=== PATIENT | female | born 1955 | race Caucasian/White ===

== ENCOUNTER 2022-07-24 11:50 | Outpatient (CLI) | payer MEDICARE, SELFPAY ==
[2022-07-24 20:36] LABS: Basophils Absolute Auto 0.1 K/mm3 (0.0-0.1); Basophils Percent Auto 0.6 % (0.2-1.2); Eosinophils Absolute Auto 0.2 K/mm3 (0-0.3); Eosinophils Percent Auto 2.3 % (0-4.4); Immature Granulocyte Absolute 0.02 K/mm3 (0.00-0.031); Immature Granulocyte Percent A 0.3 % (0-0.5); Lymphocytes Absolute Auto 2.92 K/mm3 (0.9-3.2); Lymphocytes Percent Auto 36.8 % (18.3-44.2); Mean Corpuscular HGB Conc 31.2 g/dl (32-36); Mean Corpuscular Hemoglobin 28.9 pg (26-34); Mean Corpuscular Volume 92.9 fl (80-100); Mean Platelet Volume 9.5 fl (7.4-10.4); Monocytes Absolute Auto 0.5 K/mm3 (0.1-0.6); Monocytes Percent Auto 5.9 % (2.6-8.5); Neutrophils Absolute Auto 4.3 K/mm3 (1.3-6.7); Neutrophils Percent Auto 54.1 % (45.5-73.1); Platelet Count Result 222 k/mm3 (150-375); Red Blood Count 4.63 M/mm3 (4.2-5.4); Red Cell Distribution Width 14.5 % (11.5-14.5); White Blood Count 7.9 K/mm3 (4.5-10.0)
[2022-07-24 21:04] LABS: Hemoglobin 13.4 g/dL (12.0-15.0)
[2022-07-24 21:17] LABS: Alanine Aminotransferase 25 U/L (6-35); Albumin Level 4.5 g/dL (3.5-5.1); Alkaline Phosphatase 102 U/L (38-126); Anion Gap 8 mmol/L (8-16); Aspartate Amino Transferase 51 U/L (14-36); Bilirubin,Total 0.7 mg/dL (0.2-1.3); Blood Urea Nitrogen 23 mg/dL (7-17); Calcium 9.1 mg/dL (8.4-10.2); Carbon Dioxide 26 mmol/L (22-30); Chloride 105 mmol/L (98-107); Cholesterol 175 mg/dL (0-200); Estimated Glomerular Filt Rate 55; Glucose 93 mg/dL (65-110); HDL Direct 34 mg/dL; Potassium 4.6 mmol/L (3.4-5.0); Sodium 139 mmol/L (137-145); Triglycerides 151 mg/dL (<150)
[2022-07-24 21:21] LABS: Vitamin D 25 Hydroxy 29.5 ng/mL
[2022-07-24 21:28] LABS: LDL Cholesterol Direct 111 mg/dL
== END 2022-07-24 11:51 | disposition home or self-care (01) ==
LOC: ANHGOSHLAB 11:51
PROVIDERS: PCP Family Medicine; Visit Provider Family Medicine
DX: E78.5 Hyperlipidemia, unspecified (principal); E55.9 Vitamin D deficiency, unspecified; E53.8 Deficiency of other specified B group vitamins; I10 Essential (primary) hypertension
CPT/HCPCS: 36415; 80053; 80061; 82306; 82607; 84443; 85025

== ENCOUNTER 2022-11-11 10:23 | Emergency (ER) | payer MEDICARE, SELFPAY ==
--- NOTE | ~2022-11-11 | CT_ITS ---
EXAMINATION: CT BRAIN W/O DATE: 11/11/2022 11:35 INDICATION: Extreme dizziness. TECHNIQUE: Computed tomography (CT) of the head was performed without intravenous contrast. The dose- length product was 529.67 mGy-cm. Automated exposure control and iterative reconstruction technique w ere employed. COMPARISON: No prior studies for comparison. FINDINGS: Normal brain parenchymal volume for age. Normal vo-white differentiation. No acute intrac ranial hemorrhage, infarction, mass or mass effect. No ventriculomegaly or midline shift. Midline sagittal images demonstrate a normal corpus callosum, c raniovertebral junction and sella turcica. Basilar cisterns are patent. Paranasal sinuses and mastoids are pneumatized. No depressed skull fractures. IMPRESSION: 1. No acute intracranial abnormality. Reviewed, dictated and finalized at location A. [employer]
[2022-11-11 10:30] VITALS: BP 133/79; PULSE 65; RESP 16; TEMP 36.3; O2SAT 98
--- NOTE | 2022-11-11 10:38 | ED_ITS ---
HPI - Nausea/Vomiting/Diarrhea General Chief complaint: Nausea/Vomiting/Diarrhea Stated complaint: ambulance Time Seen by Provider: 11/11/22 10:38 Source: patient, EMS and RN notes reviewed Mode of arrival: ambulatory Limitations: no limitations Related Data Home Medications Medication Instructions Recorded Confirmed vit C 250 mg-vit E 200 unit-zinc 1 tablet PO BID 07/24/22 11/11/22 12.5 mg-copper 1 [id number] tablet (ICaps AREDS2 (copper citrate)) Allergies Allergy/AdvReac Type Severity Reaction Status Date / Time No Known Drug Allergies Allergy Unknown Unknown Verified 07/24/22 10:03 [facility] Past Medical History Medical History (Updated 11/11/22 @ 10:41 by Louis Sorensen MD) Abnormal mammogram of left breast Body mass index [BMI] 40.0-44.9, adult (12/30/18) CKD (chronic kidney disease) stage 3, GFR 30-59 ml/min Essential (primary) hypertension Hx of colonic polyps Vitamin D deficiency Surgical History Surgical History History of cholecystectomy (~2005) Hx of section (~1979) x2 1979,1982 Hx of tonsillectomy (~1958) Family History Family History Other Diabetes mellitus Hypertension Social History Social History Smoking status: Never smoker Second hand tobacco smoke exposure: No Alcohol intake: current Alcohol use details: consumes 2 glasses of wine weekly Substance use: never Substance use type: does not use Gender identity (if verbalized by the patient): Female Course Vital Signs Vital signs: Vital Signs Temperature 36.3 C L 11/11/22 10:30 Pulse Rate 65 11/11/22 10:30 Respiratory Rate 16 11/11/22 10:30 Blood Pressure 133/79 11/11/22 10:30 Pulse Oximetry 98 11/11/22 10:30 Oxygen Delivery Room Air 11/11/22 10:30 Temperature 36.3 C L 11/11/22 10:30 Pulse Rate 65 11/11/22 10:30 Respiratory Rate 16 11/11/22 10:30 Blood Pressure 133/79 11/11/22 10:30 Pulse Oximetry 98 11/11/22 10:30 Oxygen Delivery Room Air 11/11/22 10:30 Discharge Plan Discharge Prescriptions: No Action ICaps AREDS2 (copper citrate) 250 mg-200 unit -12.5 mg-1 mg tablet 1 tablet PO BID omeprazole 40 mg capsule,delayed release(DR/EC) 40 mg PO DAILY Qty: 90 0RF cholecalciferol (vitamin D3) 50 mcg (2,000 unit) tablet 50 mcg PO DAILY Qty: 90 1RF cyanocobalamin (vitamin B-12) 1,000 mcg tablet, sublingual 1,000 mcg sublingual DAILY Qty: 90 2RF verapamil 360 mg capsule,ext rel. pellets 24 hr 360 mg PO DAILY Qty: 90 1RF Paxlovid (EUA) 150-100 mg tablets,dose pack See Rx Instructions PO BID Qty: 20 0RF Rx Instructions: 2 tabs orally twice a day Follow-up/Referrals: UNKNOWN,DOCTOR [Primary Care Provider] -
--- NOTE | 2022-11-11 10:53 | ED.DIZZY ---
HPI - Dizziness General Chief Complaint: Nausea/Vomiting/Diarrhea Stated Complaint: ambulance Time Seen by Provider: 11/11/22 10:38 Source: patient, EMS and RN notes reviewed Mode of arrival: EMS Limitations: no limitations History of Present Illness HPI Narrative: patient states that she was sitting at home watching television when she had sudden onset dizziness and unsteadiness. She had just sat up so she sat back down and closed her eyes and waited for it to resolve. A few minutes later she got up and went to her room and had another onset the dizziness just feeling unsteady this made her nauseous and that is when she began to throw up. When she threw up she had some muscle spasms in her diaphragm she states and once the vomiting stopped the spasming stop. She was still having some residual unsteady off balance symptoms so she asked her to call EMS and she was brought in for further evaluation. In the ambulance she refused the Zofran because she was no longer nauseous. she states that the feeling of being unsteady has resolved. She still has some soreness in her abdomen. She denies any headache one-sided body weakness or change in vision. MD elicited complaint: dizziness and difficulty walking Onset (ago): minute(s) Timing: sudden onset Severity: severe Description: off-balance Context: change in body position History of similar symptoms: No Exacerbating factors: change in body position Relieving factors: remaining still Associated symptoms: nausea and vomiting Associated neuro symptoms: other (none) Related Data Home Medications Medication Instructions Recorded Confirmed vit C 250 mg-vit E 200 unit-zinc 1 tablet PO BID 07/24/22 11/11/22 12.5 mg-copper 1 [id number]-sba-[id number] tablet (ICaps AREDS2 (copper citrate)) Allergies Allergy/AdvReac Type Severity Reaction Status Date / Time No Known Drug Allergies Allergy Unknown Unknown Verified 07/24/22 10:03 Review of Systems Review of Systems: All systems reviewed & are unremarkable except as noted in HPI and below [facility] Past Medical History Medical History (Updated 11/11/22 @ 11:58 by Louis Sorensen MD) Abnormal mammogram of left breast Body mass index [BMI] 40.0-44.9, adult (12/30/18) CKD (chronic kidney disease) stage 3, GFR 30-59 ml/min Essential (primary) hypertension Hx of colonic polyps Vitamin D deficiency Surgical History Surgical History History of cholecystectomy (~2005) Hx of section (~1979) x2 1979,1982 Hx of tonsillectomy (~1958) Family History Family History Other Diabetes mellitus Hypertension Social History Social History Smoking status: Never smoker Second hand tobacco smoke exposure: No Alcohol intake: current Alcohol use details: consumes 2 glasses of wine weekly Substance use: never Substance use type: does not use Gender identity (if verbalized by the patient): Female Exam Const: General: healthy appearing, no acute distress and alert Nutritional Appearance: well nourished and obese morbidly obese Orientation/consciousness: patient oriented x3 Limitations: no limitations HENMT: Head: normal to inspection Face and sinus: normal facial exam Eyes: Conjunctivae: conjunctivae normal Pupils: Equal, round and reactive pupils present EOM: EOMs intact bilaterally and No Nystagmus present Neck: Neck: normal visual inspection and no meningeal signs Resp: Effort & Inspection: normal respiratory effort Auscultation: clear to auscultation bilaterally Cardio: Rate: regular rate Rhythm: regular rhythm GI: GI Palp: Yes Soft to palpation and No Tenderness to palpation present (GI) Auscultation: normal bowel sounds Back/Spine/Pelvis: Cervical Spine: cervical ROM normal Thoracic/Lumbar Spine: thoraco-lumbar ROM normal Skin: General
[2022-11-11 11:14] LABS: Basophils Absolute Auto 0.02 K/mm3 (0.00-0.10); Basophils Percent Auto 0.2 % (0.0-1.0); Eosinophils Absolute Auto 0.05 K/mm3 (0.02-0.50); Eosinophils Percent Auto 0.5 % (1.0-6.0); Hematocrit 38.9 % (35.0-42.0); Hemoglobin 12.4 g/dL (11.7-13.8); Immature Granulocyte Absolute 0.04 K/mm3 (0.00-0.00); Immature Granulocyte Percent A 0.4 % (0.0-0.0); Lymphocytes Absolute Auto 1.32 K/mm3 (1.10-4.50); Lymphocytes Percent Auto 13.6 % (18.0-42.0); Mean Corpuscular HGB Conc 31.9 g/dL (32.0-36.0); Mean Corpuscular Hemoglobin 28.6 pg (27.0-31.0); Mean Corpuscular Volume 89.6 fL (78.0-102.0); Mean Platelet Volume 9.1 fl (9.2-11.8); Monocytes Absolute Auto 0.34 K/mm3 (0.10-0.90); Monocytes Percent Auto 3.5 % (2.0-11.0); Neutrophils Absolute Auto 7.9 K/mm3 (1.7-7.2); Neutrophils Percent Auto 81.8 % (50.0-70.0); Platelet Count Result 177 K/mm3 (150-420); Red Blood Count 4.34 M/mm3 (4.20-5.40); Red Cell Distribution Width 13.9 % (11.6-14.4); White Blood Count 9.7 K/mm3 (4.8-10.8)
[2022-11-11 11:34] LABS: Alanine Aminotransferase 24 U/L (14-59); Albumin Level 3.5 g/dL (3.4-5.0); Alkaline Phosphatase 86 U/L (46-116); Anion Gap 4 mmol/L (8-16); Aspartate Amino Transferase 27 U/L (15-37); Bilirubin,Total 0.3 mg/dL (0.00-1.00); Blood Urea Nitrogen 22 mg/dL (7-18); CRP 0.7 mg/dL (0.0-0.9); Calcium 8.4 mg/dL (8.5-10.1); Carbon Dioxide 30 mmol/L (21-32); Chloride 106 mmol/L (98-108); Estimated Glomerular Filt Rate 49; Glucose 108 mg/dL (70-99); Osmolality Calculated 294 mOsm/kg (285-295); Potassium 3.8 mmol/L (3.5-5.1); Sodium 140 mmol/L (136-145); Total Protein 6.8 g/dL (6.4-8.2)
[2022-11-11 11:49] LABS: Add Urine Microscopic? YES; Appearance Urine Clear (Clear); Bilirubin Urine Negative (Negative); Blood Urine Trace-Intact (Negative); Color Urine Light Yellow (Yellow); Glucose Urine UA Negative (Negative); Ketones Urine Trace (Negative); Leukocyte Esterase Ur Negative LEU/UL (Negative); Nitrate Urine Negative (Negative); Protein Urine Negative (Negative); Specific Grav Ur 1.025 (1.010-1.020); Urobilinogen Urine 0.2 mg/dL (0.2-1.0)
--- NOTE | 2022-11-11 11:49 | PC.NURSE ---
patient states she has not taken her am dosage of blood pressure medication due to vomiting. erp is aware.
[2022-11-11 11:54] LABS: RBC Urine 0-2 /hpf (0-2); Squamous Epithelial Cell Urine Moderate /hpf (Few); WBC Urine 0-3 /hpf (0-3)
[2022-11-11 11:55] LABS: Bacteria Urine 2+ /hpf
[2022-11-11 12:00] VITALS: BP 160/69; PULSE 61; RESP 18; O2SAT 100
[2022-11-11 12:12] VITALS: BP 156/84; PULSE 67; RESP 18; TEMP 36.4; O2SAT 98
== END 2022-11-11 12:13 | disposition home or self-care (01) ==
PROVIDERS: Emergency Provider Emergency Medicine
DX: H81.10 Benign paroxysmal vertigo, unspecified ear (principal); I12.9 Hypertensive chronic kidney disease with stage 1 through stage 4 chronic kidney disease, or unspecified chronic kidney disease; N18.30 Chronic kidney disease, stage 3 unspecified; E55.9 Vitamin D deficiency, unspecified
CPT/HCPCS: 36415; 70450; 80053; 81001; 85025; 86140; 99284

== ENCOUNTER 2023-01-22 10:44 | Outpatient (CLI) | payer MEDICARE, SELFPAY ==
[2023-01-22 20:11] LABS: Basophils Absolute Auto 0.1 K/mm3 (0.0-0.1); Basophils Percent Auto 0.8 % (0.2-1.2); Eosinophils Absolute Auto 0.2 K/mm3 (0-0.3); Eosinophils Percent Auto 2.1 % (0-4.4); Hemoglobin 13.7 g/dL (12.0-15.0); Immature Granulocyte Absolute 0.02 K/mm3 (0.00-0.031); Immature Granulocyte Percent A 0.3 % (0-0.5); Lymphocytes Absolute Auto 2.58 K/mm3 (0.9-3.2); Lymphocytes Percent Auto 33.3 % (18.3-44.2); Mean Corpuscular HGB Conc 31.9 g/dl (32-36); Mean Corpuscular Hemoglobin 28.4 pg (26-34); Mean Corpuscular Volume 89.2 fl (80-100); Mean Platelet Volume 9.4 fl (7.4-10.4); Monocytes Absolute Auto 0.5 K/mm3 (0.1-0.6); Monocytes Percent Auto 5.9 % (2.6-8.5); Neutrophils Absolute Auto 4.5 K/mm3 (1.3-6.7); Neutrophils Percent Auto 57.6 % (45.5-73.1); Platelet Count Result 236 k/mm3 (150-375); Red Blood Count 4.82 M/mm3 (4.2-5.4); Red Cell Distribution Width 13.8 % (11.5-14.5); White Blood Count 7.7 K/mm3 (4.5-10.0)
[2023-01-22 20:22] LABS: Vitamin D 25 Hydroxy 36.6 ng/mL
[2023-01-22 20:36] LABS: Alanine Aminotransferase 20 U/L (6-35); Albumin Level 4.2 g/dL (3.5-5.1); Alkaline Phosphatase 99 U/L (38-126); Anion Gap 7 mmol/L (8-16); Aspartate Amino Transferase 25 U/L (14-36); Bilirubin,Total 0.6 mg/dL (0.2-1.3); Blood Urea Nitrogen 19 mg/dL (7-17); Calcium 8.8 mg/dL (8.4-10.2); Carbon Dioxide 26 mmol/L (22-30); Chloride 108 mmol/L (98-107); Estimated Glomerular Filt Rate 55; Glucose 89 mg/dL (65-110); Potassium 4.6 mmol/L (3.4-5.0); Sodium 141 mmol/L (137-145)
== END 2023-01-22 10:45 | disposition home or self-care (01) ==
LOC: ANHGOSHLAB 10:45
PROVIDERS: PCP Family Medicine; Visit Provider Nurse Practitioner
DX: E53.8 Deficiency of other specified B group vitamins (principal); E55.9 Vitamin D deficiency, unspecified; I10 Essential (primary) hypertension
CPT/HCPCS: 36415; 80053; 82306; 82607; 85025

== ENCOUNTER 2023-07-25 09:50 | Outpatient (CLI) | payer MEDICARE, SELFPAY ==
[2023-07-25 11:43] LABS: Alanine Aminotransferase 19 U/L (6-35); Albumin Level 4.1 g/dL (3.5-5.1); Alkaline Phosphatase 87 U/L (38-126); Anion Gap 8 mmol/L (8-16); Aspartate Amino Transferase 35 U/L (14-36); Bilirubin,Total 0.6 mg/dL (0.2-1.3); Blood Urea Nitrogen 21 mg/dL (7-17); Calcium 8.8 mg/dL (8.4-10.2); Carbon Dioxide 26 mmol/L (22-30); Chloride 107 mmol/L (98-107); Cholesterol 159 mg/dL (0-200); Estimated Glomerular Filt Rate 55; Glucose 97 mg/dL (65-110); HDL Direct 34 mg/dL; Potassium 4.6 mmol/L (3.4-5.0); Sodium 141 mmol/L (137-145); Triglycerides 94 mg/dL (<150)
[2023-07-25 11:45] LABS: Basophils Percent Auto 0.6 % (0.2-1.2); Eosinophils Absolute Auto 0.1 K/mm3 (0-0.3); Hematocrit 41.4 % (37.0-47.0); Hemoglobin 12.9 g/dL (12.0-15.0); Immature Granulocyte Absolute 0.02 K/mm3 (0.00-0.031); Immature Granulocyte Percent A 0.3 % (0-0.5); Lymphocytes Absolute Auto 2.38 K/mm3 (0.9-3.2); Lymphocytes Percent Auto 33.3 % (18.3-44.2); Mean Corpuscular HGB Conc 31.2 g/dl (32-36); Mean Corpuscular Hemoglobin 28.7 pg (26-34); Mean Platelet Volume 9.6 fl (7.4-10.4); Monocytes Absolute Auto 0.4 K/mm3 (0.1-0.6); Monocytes Percent Auto 5.7 % (2.6-8.5); Neutrophils Absolute Auto 4.2 K/mm3 (1.3-6.7); Neutrophils Percent Auto 58.1 % (45.5-73.1); Platelet Count Result 219 k/mm3 (150-375); Red Cell Distribution Width 13.9 % (11.5-14.5); White Blood Count 7.2 K/mm3 (4.5-10.0)
[2023-07-25 11:54] LABS: LDL Cholesterol Direct 101 mg/dL
[2023-07-25 13:10] LABS: Vitamin D 25 Hydroxy 33.7 ng/mL
[2023-07-28 12:45] LABS: Vitamin B12 > 1000.0 pg/mL (239-931)
== END 2023-07-25 09:51 | disposition home or self-care (01) ==
PROVIDERS: PCP Family Medicine; Visit Provider Family Medicine
DX: E53.8 Deficiency of other specified B group vitamins (principal); E55.9 Vitamin D deficiency, unspecified; I10 Essential (primary) hypertension; E78.5 Hyperlipidemia, unspecified
CPT/HCPCS: 36415; 80053; 80061; 82306; 82607; 84443; 85025

== ENCOUNTER 2023-09-11 00:44 | Day surgery (SDC) | payer MEDICARE, SELFPAY ==
[2023-08-30 13:45] VITALS: BMI 43.9
--- NOTE | 2023-09-07 11:17 | SUR.PREOP ---
Patient called regarding upcoming procedure. Message left on patient's voicemail regarding preop instructions and appointment times.
[2023-09-11 06:26] VITALS: BP 150/110; PULSE 79; TEMP 36.4; O2SAT 98; BMI 43.5
[2023-09-11] MEDS: LACTATED RINGERS 1,000 ML 150 ML IV CONT (06:29)
--- NOTE | 2023-09-11 07:20 | WPDANESEPPF ---
Anes - Initial Pre Proc Eval Procedure: Operation Date: 09/11/23 07:30 Proposed Procedures p Screening Colonoscopy - Elias Kohler MD Date/Time: 09/11/23 07:20 Surgeon: Elias Kohler MD Pre Op Diagnosis: Personal hx of colon polyps Patient Data Age: 67 Gender: F Height: 1.57 m Weight: 108 kg Last Vital Signs Temp 97.6 F 09/11/23 06:26 Pulse 79 09/11/23 06:26 BP 150/110 H 09/11/23 06:26 Pulse Ox 98 09/11/23 06:26 O2 Del Method Room Air 09/11/23 06:26 Allergies Allergy/AdvReac Type Severity Reaction Status Date / Time No Known Drug Allergies Allergy Unknown Unknown Verified 09/11/23 06:24 Home Medications Medication Instructions Recorded Confirmed Type cholecalciferol (vitamin D3) 50 50 mcg PO DAILY #90 tabs 02/27/22 09/11/23 Rx mcg (2,000 unit) tablet cyanocobalamin (vitamin B-12) 1,000 mcg sublingual DAILY #90 tabs 07/25/22 09/11/23 Rx 1,000 mcg sublingual tablet lisinopril 10 mg tablet 10 mg PO DAILY #90 tabs 05/17/23 09/11/23 Rx verapamil 360 mg 24 hr 360 mg PO DAILY #90 caps 08/30/23 08/30/23 Rx capsule,extended release Patient hx anesthesia problems: none Family hx anesthesia problems: none Results Review: All pre-operative results and documents have been reviewed as part of the pre-operative evaluation. [facility] Past Medical History Medical History Abnormal mammogram of left breast Body mass index [BMI] 40.0-44.9, adult (12/30/18) CKD (chronic kidney disease) stage 3, GFR 30-59 ml/min Essential (primary) hypertension Hx of colonic polyps Vitamin D deficiency Surgical History Surgical History History of cholecystectomy (~2005) Hx of section (~1979) x2 1979,1982 Hx of tonsillectomy (~1958) Family History Family History Mother Coronary artery disease Diabetes mellitus Chronic kidney disease Heart disease Hypertension Grandparent Cerebrovascular accident Malignant neoplasm of prostate Father Diverticulitis Throat cancer Sibling Gout Pre-diabetes Social History Social History Social History: Caffeine-none Smoking status: Never smoker Second hand tobacco smoke exposure: No Alcohol intake: former Alcohol use details: consumes 2 glasses of wine weekly Substance use: never Substance use type: does not use Lack of Transportation: No Lack of Food: Never True Current Housing: I Have Housing Concerned About Future Housing: No Difficulty Paying Gas/Electric Bills: No Difficulty Paying for Meds: No Currently Unemployed: No Education: Bachelor's Degree Difficulty w/ Childcare or Family Care: No Gender identity (if verbalized by the patient): Female Anes - Eval Final PreProcedure Day of Procedure 09/11/23 07:20 Patient weight: morbidly obese Heart: regular rate and rhythm Lungs: clear to auscultation Airway: Mallampati scale class II Neurological: alert and oriented Last oral intake: >/= 8 hours ASA classification: III Emergent: no Anesthetic plan: proceed Anesthesia type and monitoring: general GIVS and standard monitoring Results Review: All pre-operative results and documents have been reviewed as part of the pre-operative evaluation. Informed Consent: The patient's anesthetic plan and its attendant risks and benefits were discussed with the patient/family/POA. Questions were solicited and answers provided to the satisfaction of the patient/family/POA.
--- NOTE | 2023-09-11 07:30 | PM.HPGS ---
History of Present Illness History of Present Illness Consent: Risks, benefits, and alternatives have been discussed and questions answered. Patient agrees to proceed with procedure. Chief complaint: Personal hx of colon polyps Narrative: Lilli Roberts is a 67 year old female with colon polyps in 2018 Review of Systems Constitutional: Constitutional: Denies headache(s) and Denies weakness Eyes: Eyes: Denies blurry vision ENT: Reports Normal hearing present, Denies headache(s) and Denies neck pain Cardiovascular: Cardiovascular: Denies chest pain and Denies dyspnea Respiratory: Respiratory: Denies dyspnea Gastrointestinal: Gastrointestinal: Reports no additional gastrointestinal complaints Genitourinary: Genitourinary: Denies dysuria Musculoskeletal: Musculoskeletal: Denies neck pain Integumentary/Breasts: Skin/Breast: Denies dry skin Neurologic: Reports Normal hearing present, Denies headache(s) and Denies weakness Psychiatric: Psychiatric: Denies anxiety Endocrine: Endocrine: Denies change in body appearance Hematologic/Lymphatic: Hematologic/Lymphatic: Denies easy bleeding Allergic/Immunologic: Allergic/Immunologic: Denies urticaria PMFSH Past Medical History Medical History (Updated 09/11/23 @ 07:30 by Elias Kohler MD) Abnormal mammogram of left breast Body mass index [BMI] 40.0-44.9, adult (12/30/18) CKD (chronic kidney disease) stage 3, GFR 30-59 ml/min Essential (primary) hypertension Hx of colonic polyps Vitamin D deficiency Surgical History Surgical History History of cholecystectomy (~2005) Hx of section (~1979) x2 1979,1982 Hx of tonsillectomy (~1958) Family History Family History Mother Coronary artery disease Diabetes mellitus Chronic kidney disease Heart disease Hypertension Grandparent Cerebrovascular accident Malignant neoplasm of prostate Father Diverticulitis Throat cancer Sibling Gout Pre-diabetes Social History Social History Social History: Caffeine-none Smoking status: Never smoker Second hand tobacco smoke exposure: No Alcohol intake: former Alcohol use details: consumes 2 glasses of wine weekly Substance use: never Substance use type: does not use Lack of Transportation: No Lack of Food: Never True Current Housing: I Have Housing Concerned About Future Housing: No Difficulty Paying Gas/Electric Bills: No Difficulty Paying for Meds: No Currently Unemployed: No Education: Bachelor's Degree Difficulty w/ Childcare or Family Care: No Gender identity (if verbalized by the patient): Female Meds Home Medications and Allergies Home Medications Medication Instructions Recorded Confirmed Type cholecalciferol (vitamin D3) 50 50 mcg PO DAILY #90 tabs 02/27/22 09/11/23 Rx mcg (2,000 unit) tablet cyanocobalamin (vitamin B-12) 1,000 mcg sublingual DAILY #90 tabs 07/25/22 09/11/23 Rx 1,000 mcg sublingual tablet lisinopril 10 mg tablet 10 mg PO DAILY #90 tabs 05/17/23 09/11/23 Rx verapamil 360 mg 24 hr 360 mg PO DAILY #90 caps 08/30/23 08/30/23 Rx capsule,extended release Allergies Allergy/AdvReac Type Severity Reaction Status Date / Time No Known Drug Allergies Allergy Unknown Unknown Verified 09/11/23 06:24 Vital Signs Vital Signs - 24 hr 09/11/23 06:26 Temperature 97.6 F Pulse Rate 79 Blood Pressure 150/110 H Pulse Oximetry 98 Oxygen Delivery Room Air Exam Const: General: comfortable and no acute distress HENMT: Face/Nose/Sinus: Normal nares present Eyes: General: appearance normal, both eyes and all related structures Neck: Neck: no JVD Resp: Auscultation: clear to auscultation bilaterally Cardio: Rate: regular rate Rhythm: regular rhythm GI: Inspection: non-distended G
[2023-09-11 07:53] VITALS: BP 125/86; PULSE 88; RESP 24; O2SAT 95
[2023-09-11 08:03] VITALS: BP 128/83; PULSE 82; RESP 20; O2SAT 99
[2023-09-11 08:13] VITALS: BP 131/82; PULSE 83; RESP 26; O2SAT 97
== END 2023-09-11 08:17 | disposition home or self-care (01) ==
PROVIDERS: PCP Family Medicine; Visit Provider Internal Medicine Gastroenterology
PROC: 0DJD8ZZ Inspection of Lower Intestinal Tract, Via Natural or Artificial Opening Endoscopic (ICD-10-PCS; CPT 45378; principal; 2023-09-11 07:30)
DX: Z12.11 Encounter for screening for malignant neoplasm of colon (principal); K57.30 Diverticulosis of large intestine without perforation or abscess without bleeding; K64.8 Other hemorrhoids; Z86.010 Personal history of colon polyps; I12.9 Hypertensive chronic kidney disease with stage 1 through stage 4 chronic kidney disease, or unspecified chronic kidney disease; N18.30 Chronic kidney disease, stage 3 unspecified; E55.9 Vitamin D deficiency, unspecified; E66.01 Morbid (severe) obesity due to excess calories; Z68.41 Body mass index [BMI] 40.0-44.9, adult
CPT/HCPCS: G0105; J2704; J7120

== ENCOUNTER 2024-01-07 13:48 | Outpatient (CLI) | payer MEDICARE, SELFPAY ==
--- NOTE | ~2024-01-07 | DEXA_ITS ---
Bone Density Report Name: MARIA C HARPER Age: 68 Sex: Female Ethnicity: White Date of : 1955 Indication: postmenopausal; screening for osteoporosis; height loss; Referring Provider: VENICE, LIZA Campbell Study: Bone densitometry was performed. Exam Date: January 07, 2024 Accession number: [id number] Bone Density: Region BMD T-score Z-score Classification AP Spine(L1-L4) 1.040 -0.1 2.0 Normal Femoral Neck (Left) 0.707 -1.3 0.5 Osteopenia Total Hip (Left) 0.901 -0.3 1.2 Normal Femoral Neck (Right) 0.698 -1.4 0.4 Osteopenia Total Hip (Right) 0.878 -0.5 1.0 Normal Femoral Neck Mean 0.702 -1.3 0.5 Osteopenia Total Hip Mean 0.889 -0.4 1.1 Normal World Health Organization criteria for BMD impression classify patients as: Normal (T-score at or above -1.0), Osteopenia (T-score between -1.0 and -2.5), or Osteoporosis (T-score at or below -2.5). 10-year Fracture Risk(1): Major Osteoporotic Fracture 8.0% Hip Fracture 0.9% Reported Risk Factors: [place] (), Neck BMD=0.698, BMI=44.6 (1) FRAX(R) Version 3.08. Fracture probability calculated for an untreated patient. Fracture probability may be lower if the patient has received treatment. Clinical Information Provided by Patient: Has used the following medications: Vitamin D Patient maximum height was 63 Menopause Age: 45 No regular weight bearing exercise Onset of menses at age 12 Number of children 2 Impression: The patient has low bone mass, based on the Right Femoral Neck T-score. Discussion: BONE DENSITY IS LOW AT ONE OR MORE SKELETAL SITES. This patient's lowest T-score is low at one or more skeletal sites. It meets the World Health Organization's (WHO) criteria for ?low bone mass? (T-score between -1.0 and -2.5). The patient's 10-year risk of fracture as calculated by FRAX is less than the threshold where pharmacological therapy is recommended by the National Osteoporosis Foundation (NOF). However, all treatment decisions require clinical judgment and consideration of individual patient factors, including patient preferences, comorbidities, previous drug use, risk factors not captured in the FRAX model (e.g., frailty, falls, vitamin D deficiency, increased bone turnover, interval significant decline in bone density) and possible under or overestimation of fracture risk by FRAX. The patient should follow a healthful lifestyle (good nutrition with adequate calcium and vitamin D, and appropriate weight-bearing exercise). Follow-Up: Consider repeating this study in 2 to 3 years to reassess this patient's status, or sooner if there is some new clinical indication. Reported by: Dr. Bartolo Martinez on 01/07/2024 2:14:00 PM. Reviewed, dictated and finalized at location A.
== END 2024-01-07 13:49 | disposition home or self-care (01) ==
LOC: CHSIMG 13:50
PROVIDERS: PCP Family Medicine; Visit Provider Nurse Practitioner Women's Health
DX: Z78.0 Asymptomatic menopausal state (principal); M85.89 Other specified disorders of bone density and structure, multiple sites
CPT/HCPCS: 77080

== ENCOUNTER 2024-01-23 12:34 | Outpatient (CLI) | payer MEDICARE, SELFPAY ==
[2024-01-23 15:24] LABS: Alanine Aminotransferase 18 U/L (6-35); Albumin Level 4.2 g/dL (3.5-5.1); Alkaline Phosphatase 83 U/L (38-126); Anion Gap 4 mmol/L (8-16); Aspartate Amino Transferase 46 U/L (14-36); Bilirubin,Total 0.6 mg/dL (0.2-1.3); Blood Urea Nitrogen 25 mg/dL (7-17); Calcium 9.2 mg/dL (8.4-10.2); Carbon Dioxide 28 mmol/L (22-30); Chloride 107 mmol/L (98-107); Estimated Glomerular Filt Rate 55; Glucose 91 mg/dL (65-110); Potassium 4.5 mmol/L (3.4-5.0); Sodium 139 mmol/L (137-145)
== END 2024-01-23 12:35 | disposition home or self-care (01) ==
PROVIDERS: PCP Family Medicine; Visit Provider Family Medicine
DX: I10 Essential (primary) hypertension (principal); Z79.899 Other long term (current) drug therapy
CPT/HCPCS: 36415; 80053

== ENCOUNTER 2024-07-30 11:07 | Outpatient (CLI) | payer MEDICARE, SELFPAY ==
[2024-07-30 14:12] LABS: Basophils Percent Auto 0.5 % (0.2-1.2); Eosinophils Absolute Auto 0.1 K/mm3 (0-0.3); Eosinophils Percent Auto 1.8 % (0-4.4); Hematocrit 43.4 % (37.0-47.0); Hemoglobin 13.5 g/dL (12.0-15.0); Immature Granulocyte Absolute 0.03 K/mm3 (0.00-0.031); Immature Granulocyte Percent A 0.4 % (0-0.5); Lymphocytes Absolute Auto 2.72 K/mm3 (0.9-3.2); Lymphocytes Percent Auto 35.7 % (18.3-44.2); Mean Corpuscular HGB Conc 31.1 g/dl (32-36); Mean Corpuscular Hemoglobin 28.5 pg (26-34); Mean Corpuscular Volume 91.6 fl (80-100); Mean Platelet Volume 9.5 fl (7.4-10.4); Monocytes Absolute Auto 0.5 K/mm3 (0.1-0.6); Neutrophils Absolute Auto 4.2 K/mm3 (1.3-6.7); Neutrophils Percent Auto 55.6 % (45.5-73.1); Platelet Count Result 228 k/mm3 (150-375); Red Blood Count 4.74 M/mm3 (4.2-5.4); Red Cell Distribution Width 14.1 % (11.5-14.5); White Blood Count 7.6 K/mm3 (4.5-10.0)
[2024-07-30 14:22] LABS: Alanine Aminotransferase 14 U/L (6-35); Albumin Level 4.4 g/dL (3.5-5.1); Alkaline Phosphatase 80 U/L (38-126); Anion Gap 10 mmol/L (4-12); Aspartate Amino Transferase 34 U/L (14-36); Bilirubin,Total 0.7 mg/dL (0.2-1.3); Blood Urea Nitrogen 27 mg/dL (7-17); Calcium 9.1 mg/dL (8.4-10.2); Carbon Dioxide 27 mmol/L (22-30); Chloride 103 mmol/L (98-107); Cholesterol 165 mg/dL (0-200); Estimated Glomerular Filt Rate 49; Glucose 88 mg/dL (65-110); HDL Direct 39 mg/dL; Potassium 4.8 mmol/L (3.4-5.0); Sodium 140 mmol/L (137-145); Triglycerides 131 mg/dL (<150)
[2024-07-30 14:33] LABS: LDL Cholesterol Direct 102 mg/dL
[2024-07-30 14:53] LABS: Vitamin D 25 Hydroxy 25.4 ng/mL
[2024-07-30 15:41] LABS: Hemoglobin A1C 5.7 % (<5.7)
== END 2024-07-30 11:08 | disposition home or self-care (01) ==
LOC: ANHGOSHLAB 11:08
PROVIDERS: PCP Family Medicine; Visit Provider Family Medicine
DX: E78.5 Hyperlipidemia, unspecified (principal); I12.9 Hypertensive chronic kidney disease with stage 1 through stage 4 chronic kidney disease, or unspecified chronic kidney disease; N18.31 Chronic kidney disease, stage 3a; E53.8 Deficiency of other specified B group vitamins; R73.9 Hyperglycemia, unspecified; E55.9 Vitamin D deficiency, unspecified
CPT/HCPCS: 36415; 80053; 80061; 82306; 82607; 83036; 84443; 85025

== ENCOUNTER 2025-02-03 08:55 | Outpatient (CLI) | payer MEDICARE, SELFPAY ==
--- OUTSIDE RECORDS SUMMARY | 2025-02-03 09:18 | XMS_ITS ---
Care Plan - [facility] Created on: February 03, 2025 MARIA C HARPER : 1955 Sex: Female Author Organization [facility] Address [address] [place] [address] Phone Care Team Providers Care [employer] Name Role Phone Unavailable Unavailable Unavailable
--- OUTSIDE RECORDS SUMMARY | 2025-02-03 09:18 | XMS_ITS | Clinical Summary ---
Author Organization [facility] Address [address] [place] [address] Phone Care Team Providers Care Floatman Name Role Phone Unavailable Unavailable Unavailable Reason for Visit and Chief Complaint CHART UPDATE Problems Includes: Problems addressed during this encounter and other active Problems Current Visit Onset Date Resolved Date Provider Alexiao n Status Reported Family History of Heart Disease 04/21/2015 LIZA MILLARD RN [facility] Active Last Documented On 04/21/2015 10:09AM ; [facility] Note: Unchanged - Mom, maternal sides History of Breast Fibrocystic Disease 04/14/2013 LIZA MILLARD RN [facility] Active Last Documented On 04/14/2013 3:01PM ; [facility] Note: Unchanged Past Visits Onset Date Resolved Date Provider Condition Status Colonic Diverticulosis 12/31/2023 LIZA MILLARD RN L[facility]US Active Last Documented On 4 1:10PM ; [facility] HYPERTENSION NOS 02/22/2010 ANGEL ROTHMAN M.D. Active Last Documented On 0 12:53PM ; [facility] Plan of Treatment Pending Tests Order Diagnosis Results Due Ordering P royvroseder Radiology @ other - *MAMMOGRAPHY Diagnostic Mammography Other signs and symptoms in breast 10/13/19 LIZA MILLARD RN LEXUS Last Documented On 0 2:19PM ; [facility] Radiology @ other - *MAMMOGRAPHY SCREENING MAMMOGRAM Encntr screen mammogram for malignant neoplasm of breast 01/14/24 LIZA MILLARD RN LEXUS Last Documented On 4 2:37PM ; [facility] Assessments Includes: Assessments from this encounter No Assessments Recorded Medical Equipment - Implanted Devices Includes: Current Devices No Medical Equipment Recorded Medications Includes: Medications discussed during this encounter and other current Medications Current Medications (continue as prescribed) D3 50 MCG (1999) Oral Tablet 12/31/2023 Provider: Diagnosis: Last Documented On 12/31/2023 12:57PM By Cornelia Vigil ; [facility] QC Vitamin B12 1000 MCG Oral Tablet Extended Release 0 12/31/2023 Provider: Diagnosis: Last Documented On 12/31/2023 12:57PM By Cornelia Vigil ; [facility] PreserVision AREDS 2 Oral Capsule 12/31/2023 Provide r: Diagnosis: Last Documented On 12/31/2023 12:58PM By Cornelia Vigil ; [facility] Verapamil HCl ER 360 MG Oral Capsule Extended Release 24 Hour 11/29/2023 Provider: KACIE SINCLAIR MD Diagnosis: Last Documented On 12/31/2023 12:56PM By Cornelia Vigil ; [facility] Lisinopril 10 MG Oral Tablet 11/08/2023 Provider: KACIE SINCLAIR MD Diagnosis: Last Documented On 12/31/2023 12:56PM By Cornelia Vigil ; [facility] Medications Administered Includes: Administered Medications from this encounter No Administered Medications Recorded Results Includes: Results discussed during this encounter No Results Recorded For Specified Dates History of Present Illness Includes: History of Present Illness from this encounter No History of Present Illness Recorded Social History No Social History Recorded - Smoking Status Unknown Procedures and Surgical History Surgical History Last Updated Surgical history unchanged 04/21/2015 Last Documented On 9 12:12PM ; [facility] Surgical / procedural history C SECTION 1979 AND 1983 04/15/2014 Last Documented On 9 12:12PM ; [facility] Dilation + Curettage 03/15/2010 Last Documented On 9 12:12PM ; [facility] History of cholecystectomy 03/15/2010 Last Documented On 9 12:12PM ; [facility] Tonsillectomy 03/15/2010 Last Documented On 9 12:12PM ; [facility] Medical History Includes: Medical History addressed during this encounter Description Last Updated A mammogram was performed 12/31/2023 Last Documented On 9 12:12PM ; [facility] History of a DXA of the lateral lumbar s pine was performed 09/17/2017 12/31/2023 Last Documented On 9 12:12PM ; [facility] History of Pap smear done 09/12/2018 Last Documented On 9 12:12PM ; [facility] History of screening mammogram was perfo rmed 10/22/2017 12/31/2023 Last Documented On 9 12:12PM ; [facility] Last mammogram date: 201612/31/2023 Last Documented On 9 12:12PM ; [facility] Last pap smear date 09/11/2017 Last Documented On 9 12:12PM ; [facility] Patient recently had a dexa scan 017 SPINE WNL OSTEOPENIA OF HIPS 12/31/2023 Last Documented On 9 12:12PM ; [facility] History of complete colonoscopy 10/2019 Last Documented On 9 12:12PM ; [facility] PRIMARY CARE PROVIDER : DR Baird 09/12 Last Documented On 9 12:12PM ; [facility] A colonoscopy was performed [address] [place] [address] polyps--repeat 5 years 09/12/2018 Last Documented On 9 12:12PM ; [facility] Result: normal AMH wnl 09/12/2018 Last Documented On 9 12:12PM ; [facility] Not sexually active 04/21/2015 Last Documented On 9 12:12PM ; [facility] No recent change in medical history 04/05 Last Documented On 9 12:12PM ; [facility] Result: normal 03/20/2012 Last Documented On 9 12:12PM ; [facility] section 03/15/2010 Last Documented On 9 12:12PM ; [facility] 2 03/15/2010 Last Documented On 9 12:12PM ; [facility] History of benign essential hypertension 03/15/2010 Last Documented On 9 12:12PM ; [facility] History of breast fibrocystic disease Last Documented On 9 12:12PM ; [facility] LMP: 1999 03/15/2010 Last Documented On 9 12:12PM ; [facility] Para 2 03/15/2010 Last Documented On 9 12:12PM ; [facility] D&C ~LB 02/22/2010 Last Documented On 9 12:12PM ; [facility] 2 living children 02/22/2010 Last Documented On 9 12:12PM ; [facility] Hypertension 02/22/2010 Last Documented On 9 12:12PM ; [facility] Family History Includes: Family History addressed during this encounter Description Last Updated Family history of malignant female breast neoplasm Maternal Aunts, 1st cousin at 30 yearls old 12/31/2023 Last Documented On 9 12:12PM ; [facility] Family history of (female) genital cance r 04/21/2015 Last Documented On 9 12:12PM ; [facility] Family history of carcinoma of the uteru s 04/21/2015 Last Documented On 9 12:12PM ; [facility] Family history of diabetes mellitus Mom, Maternal Grandma, Maternal aunts 04/21/2015 Last Documented On 9 12:12PM ; [facility] Family history of heart disease Mom, soumya ernal sides 04/21/2015 Last Documented On 9 12:12PM ; [facility] Family history of hypertension Mom, malik rnal side 04/21/2015 Last Documented On 9 12:12PM ; [facility] Family history of uterine cancer Sister 04/21/2015 Last Documented On 9 12:12PM ; [facility] Family history unchanged 04/21/2015 Last Documented On 9 12:12PM ; [facility] No family history of hypercholesterolemi a 03/16/2011 Last Documented On 9 12:12PM ; [facility] No family history of malignant neoplasm of the large intestine 03/16/2011 Last Documented On 9 12:12PM ; [facility] No family history of malignant neoplasm of the ovary 03/16/2011 Last Documented On 9 12:12PM ; [facility] First child named MYKE [id number]/15/2010 Last Documented On 9 12:12PM ; [facility] Second child named BELKIS [id number]/15/2010 Last Documented On 9 12:12PM ; [facility] Spouse name: JAD 03/15/2010 Last Documented On 9 12:12PM ; [facility] Family history of Cancer 02/22/2010 Last Documented On 9 12:12PM ; [facility] Family history of Diabetes 02/22/2010 Last Documented On 9 12:12PM ; [facility] Family medical history of Breast problem s 02/22/2010 Last Documented On 9 12:12PM ; [facility] Family medical history of high blood pre ssure 02/22/2010 Last Documented On 9 12:12PM ; [facility] Review of Systems Includes: Review of Systems from this encounter No Review of Systems Recorded Mental Status Includes: Mental Status from this encounter No Mental Status Recorded Functional Status Includes: Functional Status from this encounter No Functional Status Recorded Physical Exam Includes: Physical Exam from this encounter No Physical Exam Recorded Allergies Includes: Active Allergies No Known Allergies Encounters Encounter Provider Location Date Check-In Time Check-Out Time Diagnosis CHART UPDATE LIZA MILLARD RN [facility] 09/29/2019 12:12PM 11:59PM Insurance Includes: Active Insurance Policies Plan Name Member ID Group # Subscriber Relationship Effect axel Dates 1 - [facility]/MEDICARE ADV/AARP [id number] MARIA C HARPER Self Clinical Notes Includes: Clinical Notes from this encounter No Clinical Notes Recorded
--- OUTSIDE RECORDS SUMMARY | 2025-02-03 09:18 | XMS_ITS | Clinical Summary ---
Author Organization [facility] Address [address] [place] [address] Phone Care Team Providers Care Aircraft Detail Draftsperson Name Role Phone Unavailable Unavailable Unavailable Reason for Referral Date Encounter Description Provider Reason for Referral 10/24/19 * PHONE CALL LIZA CASIANO Req uest Consultation By Specialist Reason for Visit and Chief Complaint * PHONE CALL Problems Includes: Problems addressed during this encounter and other active Problems Current Visit Onset Date Resolved Date Provider Conditio n Status Reported Family History of Heart Disease 04/21/2015 LIZA MILLARD RN [facility] Active Last Documented On 04/21/2015 10:09AM ; [facility] Note: Unchanged - Mom, maternal sides History of Breast Fibrocystic Disease 04/14/2013 LIZA MILLARD RN [facility] BC Active Last Documented On 04/14/2013 3:01PM ; [facility] Note: Unchanged Past Visits Onset Date Resolved Date Provider Condition Status Colonic Diverticulosis 12/31/2023 LIZA CASIANO Active Last Documented On 4 1:10PM ; [facility] HYPERTENSION NOS 02/22/2010 ANGEL ROTHMAN M.D. Active Last Documented On 0 12:53PM ; [facility] Plan of Treatment - Transition in care, clinical summary provided - Last Documented On 10/27/2019 8:22AM ; [facility] - Request consultation by specialist - Last Documented On 10/27/2019 8:22AM ; [facility] Pending Tests Order Diagnosis Results Due Ordering P rovider Radiology @ other - *MAMMOGRAPHY SCREENING MAMMOGRAM Encntr screen mammogram for malignant neoplasm of breast 01/14/24 LIZA CASIANO BC Last Documented On 4 2:37PM ; [facility] Referrals To Diagnosis Breast Specialist ANGELA EDMONDS MD Other signs and symptoms in breast Note: L breast U/S 1:00 midd le depth hypoechoic asymmetric denisity BIRADS [address] Hudson's protocols thanks Last Documented On 0 10:16AM ; [facility] Assessments Includes: Assessments from this encounter No Assessments Recorded Medical Equipment - Implanted Devices Includes: Current Devices No Medical Equipment Recorded Medications Includes: Medications discussed during this encounter and other current Medications Current Medications (continue as prescribed) D3 50 MCG (1999) Oral Tablet 12/31/2023 Provider: Diagnosis: Last Documented On 12/31/2023 12:57PM By Cornelia Vigil ; [facility] QC Vitamin B12 1000 MCG Oral Tablet Extended Release 0 12/31/2023 Provider: Diagnosis: Last Documented On 12/31/2023 12:57PM By Cornelia Vigil ; [facility] PreserVision AREDS 2 Oral Capsule 12/31/2023 Provide r: Diagnosis: Last Documented On 12/31/2023 12:58PM By Cornelia Vigil ; [facility] Verapamil HCl ER 360 MG Oral Capsule Extended Release 24 Hour 11/29/2023 Provider: KACIE SINCLAIR MD Diagnosis: Last Documented On 12/31/2023 12:56PM By Cornelia Vigil ; [facility] Lisinopril 10 MG Oral Tablet 11/08/2023 Provider: KACIE SINCLAIR MD Diagnosis: Last Documented On 12/31/2023 12:56PM By Cornelia Vigil ; [facility] Medications Administered Includes: Administered Medications from this encounter No Administered Medications Recorded Results Includes: Results discussed during this encounter No Results Recorded For Specified Dates History of Present Illness Includes: History of Present Illness from this encounter No History of Present Illness Recorded Social History No Social History Recorded - Smoking Status Unknown Procedures and Surgical History Includes: Procedures from this encounter Procedures Code Diagnosis Performing Provider Service Location Service Date Clinical summary transmitted to referring provider electronically with reasonable certainty of receipt Last Documented On 9 8:21AM ; [facility] Surgical History Last Updated Surgical history unchanged 04/21/2015 Last Documented On 9 10:52AM ; [facility] Surgical / procedural history C SECTION 1980 AND 1983 04/15/2014 Last Documented On 9 10:52AM ; [facility] Dilation + Curettage 03/15/2010 Last Documented On 9 10:52AM ; [facility] History of cholecystectomy 03/15/2010 Last Documented On 9 10:52AM ; [facility] Tonsillectomy 03/15/2010 Last Documented On 9 10:52AM ; [facility] Medical History Includes: Medical History addressed during this encounter Description Last Updated A mammogram was performed 12/31/2023 Last Documented On 9 10:52AM ; [facility] History of a DXA of the lateral lumbar s pine was performed 09/17/2017 12/31/2023 Last Documented On 9 10:52AM ; [facility] History of Pap smear done 09/12/2018 Last Documented On 9 10:52AM ; [facility] History of screening mammogram was perfo rmed 10/22/2017 12/31/2023 Last Documented On 9 10:52AM ; [facility] Last mammogram date: 201612/31/2023 Last Documented On 9 10:52AM ; [facility] Last pap smear date 09/11/2017 4 Last Documented On 9 10:52AM ; [facility] Patient recently had a dexa scan 017 SPINE WNL OSTEOPENIA OF HIPS 12/31/2023 Last Documented On 9 10:52AM ; [facility] History of complete colonoscopy 10/2019 Last Documented On 9 10:52AM ; [facility] PRIMARY CARE PROVIDER : DR Baird 09/12 Last Documented On 9 10:52AM ; [facility] A colonoscopy was performed [address] [place] [address] polyps--repeat 5 years 09/12/2018 Last Documented On 9 10:52AM ; [facility] Result: normal AMH wnl 09/12/2018 Last Documented On 9 10:52AM ; [facility] Not sexually active 04/21/2015 Last Documented On 9 10:52AM ; [facility] No recent change in medical history 04/05 Last Documented On 9 10:52AM ; [facility] Result: normal 03/20/2012 Last Documented On 9 10:52AM ; [facility] section 03/15/2010 Last Documented On 9 10:52AM ; [facility] 2 03/15/2010 Last Documented On 9 10:52AM ; [facility] History of benign essential hypertension 03/15/2010 Last Documented On 9 10:52AM ; [facility] History of breast fibrocystic disease Last Documented On 9 10:52AM ; [facility] LMP: 1999 03/15/2010 Last Documented On 9 10:52AM ; [facility] Para 2 03/15/2010 Last Documented On 9 10:52AM ; [facility] D&C ~LB 02/22/2010 Last Documented On 9 10:52AM ; [facility] 2 living children 02/22/2010 Last Documented On 9 10:52AM ; [facility] Hypertension 02/22/2010 Last Documented On 9 10:52AM ; [facility] Family History Includes: Family History addressed during this encounter Description Last Updated Family history of malignant female breast neoplasm Maternal Aunts, 1st cousin at 30 yearls old 12/31/2023 Last Documented On 9 10:52AM ; [facility] Family history of (female) genital cance r 04/21/2015 Last Documented On 9 10:52AM ; [facility] Family history of carcinoma of the uteru s 04/21/2015 Last Documented On 9 10:52AM ; [facility] Family history of diabetes mellitus Mom, Maternal Grandma, Maternal aunts 04/21/2015 Last Documented On 9 10:52AM ; [facility] Family history of heart disease Mom, mat ernal sides 04/21/2015 Last Documented On 9 10:52AM ; [facility] Family history of hypertension Mom, mate rnal side 04/21/2015 Last Documented On 9 10:52AM ; [facility] Family history of uterine cancer Sister 04/21/2015 Last Documented On 9 10:52AM ; [facility] Family history unchanged 04/21/2015 Last Documented On 9 10:52AM ; [facility] No family history of hypercholesterolemi a 03/16/2011 Last Documented On 9 10:52AM ; [facility] No family history of malignant neoplasm of the large intestine 03/16/2011 Last Documented On 9 10:52AM ; [facility] No family history of malignant neoplasm of the ovary 03/16/2011 Last Documented On 9 10:52AM ; [facility] First child named MYKE 197903/15/2010 Last Documented On 9 10:52AM ; [facility] Second child named BELKIS 198203/15/2010 Last Documented On 9 10:52AM ; [facility] Spouse name: JAD 03/15/2010 Last Documented On 9 10:52AM ; [facility] Family history of Cancer 02/22/2010 Last Documented On 9 10:52AM ; [facility] Family history of Diabetes 02/22/2010 Last Documented On 9 10:52AM ; [facility] Family medical history of Breast problem s 02/22/2010 Last Documented On 9 10:52AM ; [facility] Family medical history of high blood pre ssure 02/22/2010 Last Documented On 9 10:52AM ; [facility] Review of Systems Includes: Review of [...] Location Date Check-In Time Check-Out Time Diagnosis * PHONE CALL LIZA MILLARD RN L[facility]US [facility] AUTHOR AGENT 9 10:51AM 11:59PM Insurance Includes: Active Insurance Policies Plan Name Member ID Group # Subscriber Relationship Effect axel Dates 1 - [facility]/MEDICARE ADV/AARP [id number] MARIA C HARPER Self Clinical Notes Includes: Clinical Notes from this encounter No Clinical Notes Recorded
--- OUTSIDE RECORDS SUMMARY | 2025-02-03 09:18 | XMS_ITS | Clinical Summary ---
Author Organization [facility] Address [address] [place] [address] Phone Care Team Providers Care Automobile Service Writer Name Role Phone Unavailable Unavailable Unavailable Reason for Visit and Chief Complaint DEXASCAN Problems Includes: Problems addressed during this encounter and other active Problems All Visits Onset Date Resolved Date Provider Condition S tatus Colonic Diverticulosis 12/31/2023 LIZA MILLARD RN [facility] BC Active Last Documented On 4 1:10PM ; [facility] Reported Family History of Heart Disease 04/21/2015 LIZA MILLARD RN Matt P BC Active Last Documented On 04/21/2015 10:09AM ; [facility] Note: Unchanged - Mom, maternal sides History of Breast Fibrocystic Disease 04/14/2013 LIZA MILLARD RN Matt P BC Active Last Documented On 04/14/2013 3:01PM ; [facility] Note: Unchanged HYPERTENSION NOS 02/22/2010 ANGEL ROTHMAN M.D. Active Last Documented On 0 12:53PM ; [facility] Plan of Treatment Pending Tests Order Diagnosis Results Due Ordering P fer Radiology @ other - *MAMMOGRAPHY SCREENING MAMMOGRAM Encntr screen mammogram for malignant neoplasm of breast 01/14/24 LIZA CASIANO BC Last Documented On 4 2:37PM ; [facility] Assessments Includes: Assessments from this encounter No Assessments Recorded Medical Equipment - Implanted Devices Includes: Current Devices No Medical Equipment Recorded Medications Includes: Medications discussed during this encounter and other current Medications Current Medications (continue as prescribed) D3 50 MCG (1999) Oral Tablet 12/31/2023 Provider: Diagnosis: Last Documented On 12/31/2023 12:57PM By Cornelia Vigil ; [facility] QC Vitamin B12 1000 MCG Oral Tablet Extended Release 0 12/31/2023 Provider: Diagnosis: Last Documented On 12/31/2023 12:57PM By Cornelia Vigil ; [facility] PreserVision AREDS 2 Oral Capsule 12/31/2023 Provide r: Diagnosis: Last Documented On 12/31/2023 12:58PM By Cornelia Vigil ; [facility] Verapamil HCl ER 360 MG Oral Capsule Extended Release 24 Hour 11/29/2023 Provider: KACIE SINCLAIR MD Diagnosis: Last Documented On 12/31/2023 12:56PM By Cornelia Vigil ; [facility] Lisinopril 10 MG Oral Tablet 11/08/2023 Provider: KACIE SINCLAIR MD Diagnosis: Last Documented On 12/31/2023 12:56PM By Cornelia Vigil ; [facility] Medications Administered Includes: Administered Medications from this encounter No Administered Medications Recorded Results Includes: Results discussed during this encounter No Results Recorded For Specified Dates History of Present Illness Includes: History of Present Illness from this encounter No History of Present Illness Recorded Social History No Social History Recorded - Smoking Status Unknown Medical History Includes: Medical History addressed during this encounter No Medical History Recorded Family History Includes: Family History addressed during this encounter No Family History Recorded Review of Systems Includes: Review of Systems [...] Location Date Check-In Time Check-Out Time Diagnosis REAGAN MILLARD RN LEXUS [facility] 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
--- OUTSIDE RECORDS SUMMARY | 2025-02-03 09:18 | XMS_ITS | Clinical Summary ---
Author Organization [facility] Address [address] [place] [address] Phone Care Team Providers Care Interactive Media Marketing Strategist Name Role Phone Unavailable Unavailable Unavailable Reason for Visit and Chief Complaint gynecologic annual exam - The Chief Complaint is: annual Problems Includes: Problems addressed during this encounter and other active Problems Current Visit Onset Date Resolved Date Provider Conditio n Status Reported Family History of Heart Disease 04/21/2015 LIZA MILLARD RN LEXUS Active Last Documented On 04/21/2015 10:09AM ; [facility] Note: Unchanged - Mom, maternal sides History of Breast Fibrocystic Disease 04/14/2013 LIZA MILLARD RN LEXUS Active Last Documented On 04/14/2013 3:01PM ; [facility] Note: Unchanged Past Visits Onset Date Resolved Date Provider Condition Status Colonic Diverticulosis 12/31/2023 LIZA MILLARD RN LEXUS Active Last Documented On 4 1:10PM ; [facility] HYPERTENSION NOS 02/22/2010 ANGEL ROTHMAN M.D. Active Last Documented On 0 12:53PM ; [facility] Plan of Treatment - Weight loss diet - Last Documented On 09/16/2019 8:25AM ; [facility] - Clinical summary provided to patient - Last Documented On 09/16/2019 8:25AM ; [facility] PT TO CALL WITH ANY CHANGE IN STATUS ALL QUESTIONS ANSWERED WITH UNDERSTANDING VERBALIZED BY PT. - Last Documented On 09/16/2019 8:25AM ; [facility] Pending Tests Order Diagnosis Results Due Ordering [facility] @ [facility] (to be scheduled) Encounter for screening for osteoporosis 09/30/19 LIZA MILLARD RN LEXUS Last Documented On 0 2:19PM ; [facility] Radiology @ other - *MAMMOGRAPHY SCREENING MAMMOGRAM Encntr screen mammogram for malignant neoplasm of breast 01/14/24 LIZA MILLARD RN [facility] Last Documented On 4 2:37PM ; [facility] Instructions to patient Lose weight Last Documented On 9 7:56AM ; [facility] Instructed to call if excess axel bleeding or abdominal/pelvic pain Last Documented On 9 7:56AM ; [facility] Instructions For Patient: Mo nthly Self Breast Exam Last Documented On 9 7:56AM ; [facility] Recommend diet and exercise at least 30 min three times per week Last Documented On 9 7:56AM ; [facility] Education and Decision Aids were provided during visit for: Patient Education: Daily herrera cium and vitamin D Last Documented On 9 7:56AM ; [facility] Assessments Includes: Assessments from this encounter Findings - NORMAL FEMALE EXAM - Last Documented On 09/16/2019 8:25AM ; [facility] - Screen malignant neoplasm cervix - Last Documented On 09/16/2019 8:25AM ; [facility] Instructions Includes: Instructions from this encounter Instructions to patient Lose weight Last Documented On 9 7:56AM ; [facility] Instructed to call if excess axel bleeding or abdominal/pelvic pain Last Documented On 9 7:56AM ; [facility] Instructions For Patient: Mo nthly Self Breast Exam Last Documented On 9 7:56AM ; [facility] Recommend diet and exercise at least 30 min three times per week Last Documented On 9 7:56AM ; [facility] Education and Decision Aids were provided during visit for: Patient Education: Daily herrera cium and vitamin D Last Documented On 9 7:56AM ; [facility] Medical Equipment - Implanted Devices Includes: Current Devices No Medical Equipment Recorded Medications Includes: Medications discussed during this encounter and other current Medications Current Medications (continue as prescribed) D3 50 MCG (1999 [place]) Oral Tablet 12/31/2023 Provider: Diagnosis: Last Documented On 12/31/2023 12:57PM By Cornelia Vigil ; [facility] QC Vitamin B12 1000 MCG Oral Tablet Extended Release 0 12/31/2023 Provider: Diagnosis: Last Documented On 12/31/2023 12:57PM By Cornelia Vigil ; [facility] PreserVision AREDS 2 Oral Capsule 12/31/2023 Provide r: Diagnosis: Last Documented On 12/31/2023 12:58PM By Cornelia Vigil ; [facility] Verapamil HCl ER 360 MG Oral Capsule Extended Release 24 Hour 11/29/2023 Provider: KACIE SINCLAIR MD Diagnosis: Last Documented On 12/31/2023 12:56PM By Cornelia Vigil ; [facility] Lisinopril 10 MG Oral Tablet 11/08/2023 Provider: KACIE SINCLAIR MD Diagnosis: Last Documented On 12/31/2023 12:56PM By Cornelia Vigil ; [facility] Medications Administered Includes: Administered Medications from this encounter No Administered Medications Recorded Vital Signs Includes: Vital Signs from this encounter Vital Name 09/16/2019 07:52A Blood Pressure Sitting (mmHg) 124/80 Height (in) 63 Weight (lb) 236 Body Mass Index (kg/m2) 41.8 Body Surface Area (m2) 2.1 Last Documented: On 09/16/2019 7:53AM ; [facility] Results Includes: Results discussed during this encounter No Results Recorded For Specified Dates History of Present Illness Includes: History of Present Illness from this encounter No History of Present Illness Recorded Social History Description Last Updated Activities 12/31/2023 Last Documented On 9 7:48AM ; [facility] Currently 12/31/2023 Last Documented On 9 7:48AM ; [facility] Education history 12/31/2023 Last Documented On 9 7:48AM ; [facility] In monogamous relationship 12/31/2023 Last Documented On 9 7:48AM ; [facility] Not exercising regularly 12/31/2023 Last Documented On 9 7:48AM ; [facility] Not using alcohol 12/31/2023 Last Documented On 9 7:48AM ; [facility] Not using drugs 12/31/2023 Last Documented On 9 7:48AM ; [facility] Personal history 12/31/2023 Last Documented On 9 7:48AM ; [facility] Sexually active 12/31/2023 Last Documented On 9 7:48AM ; [facility] Sexually active with 1 partners in the l ast year 12/31/2023 Last Documented On 9 7:48AM ; [facility] Smoking status : Never smoker 12/31/2023 Last Documented On 9 7:48AM ; [facility] Social history unchanged 12/31/2023 Last Documented On 9 7:48AM ; [facility] Not a smoker 09/16/2019 Last Documented On 9 8:25AM ; [facility] Procedures and Surgical History Includes: Procedures from this encounter Procedures Code Diagnosis Performing Provider Service L ocation Service Date education and instructions Last Documented On 9 7:56AM ; [facility] explanation of plan Last Documented On 9 7:56AM ; [facility] junk-free diet including sodas Last Documented On 9 7:56AM ; [facility] medical regimen review Last Documented On 9 7:56AM ; [facility] Urged Exercise and Diet , exercise at le ast 30 min three times per week Last Documented On 9 7:56AM ; [facility] Clinical summary provided to patient Last Documented On 9 7:56AM ; [facility] cervical Pap smear 40949 Last Documented On 9 7:56AM ; [facility] Surgical History Last Updated Surgical history unchanged 04/21/2015 Last Documented On 9 7:47AM ; [facility] Surgical / procedural history C SECTION 1980 AND 1983 04/15/2014 Last Documented On 9 7:47AM ; [facility] Dilation + Curettage 03/15/2010 Last Documented On 9 7:47AM ; [facility] History of cholecystectomy 03/15/2010 Last Documented On 9 7:47AM ; [facility] Tonsillectomy 03/15/2010 Last Documented On 9 7:47AM ; [facility] Medical History Includes: Medical History addressed during this encounter Description Last Updated Last mammogram date: 201612/31/2023 Last Documented On 9 7:47AM ; [facility] Patient recently had a dexa scan 017 SPINE WNL OSTEOPENIA OF HIPS 12/31/2023 Last Documented On 9 7:47AM ; [facility] History of complete colonoscopy 10/2019 Last Documented On 9 8:25AM ; [facility] History of a DXA of the lateral lumbar s pine was performed 09/17/2017 09/16/2019 Last Documented On 9 8:25AM ; [facility] History of Pap smear done 09/12/201810/2019 Last Documented On 9 8:25AM ; [facility] History of screening mammogram was perfo rmed 10/22/2017 09/16/2019 Last Documented On 9 8:25AM ; [facility] PRIMARY CARE PROVIDER : DR Baird 09/12 Last Documented On 9 7:47AM ; [facility] A colonoscopy was performed [address] [place] [address] polyps--repeat 5 years 09/12/2018 Last Documented On 9 7:47AM ; [facility] Result: normal AMH wnl 09/12/2018 Last Documented On 9 7:47AM ; [facility] Not sexually active 04/21/2015 Last Documented On 9 7:47AM ; [facility] No recent change in medical history 04/05 Last Documented On 9 7:47AM ; [facility] section 03/15/2010 Last Documented On 9 7:47AM ; [facility] 2 03/15/2010 Last Documented On 9 7:47AM ; [facility] History of benign essential hypertension 03/15/2010 Last Documented On 9 7:47AM ; [facility] History of breast fibrocystic disease Last Documented On 9 7:47AM ; [facility] LMP: 1999 03/15/2010 Last Documented On 9 7:47AM ; [facility] Para 2 03/15/2010 Last Documented On 9 7:47AM ; [facility] D&C ~LB 02/22/2010 Last Documented On 9 7:47AM ; [facility] 2 living children 02/22/2010 Last Documented On 9 7:47AM ; [facility] Hypertension 02/22/2010 Last Documented On 9 7:47AM ; [facility] Family History Includes: Family History addressed during this encounter Description Last Updated Family history of malignant female breast neoplasm Maternal Aunts, 1st cousin at 30 yearls old 12/31/2023 Last Documented On 9 7:47AM ; [facility] Family history of (female) genital cance r 04/21/2015 Last Documented On 9 7:47AM ; [facility] Family history of carcinoma of the uteru s 04/21/2015 Last Documented On 9 7:47AM ; [facility] Family history of diabetes mellitus Mom, Maternal Grandma, Maternal aunts 04/21/2015 Last Documented On 9 7:47AM ; [facility] Family history of heart disease Mom, mat ernal sides 04/21/2015 Last Documented On 9 7:47AM ; [facility] Family history of hypertension Mom, mate rnal side 04/21/2015 Last Documented On 9 7:47AM ; [facility] Family history of uterine cancer Sister 04/21/2015 Last Documented On 9 7:47AM ; [facility] Family history unchanged 04/21/2015 Last Documented On 9 7:47AM ; [facility] No family history of hypercholesterolemi a 03/16/2011 Last Documented On 9 7:47AM ; [facility] No family history of malignant neoplasm of the large intestine 03/16/2011 Last Documented On 9 7:47AM ; [facility] No family history of malignant neoplasm of the ovary 03/16/2011 Last Documented On 9 7:47AM ; [facility] First child named MYKE [id number]/15/2010 Last Documented On 9 7:47AM ; [facility] Second child named BELKIS [id number]/15/2010 Last Documented On 9 7:47AM ; [facility] Spouse name: JAD 03/15/2010 Last Documented On 9 7:47AM ; [facility] Family history of Cancer 02/22/2010 Last Documented On 9 7:47AM ; [facility] Family history of Diabetes 02/22/2010 Last Documented On 9 7:47AM ; [facility] Family medical history of Breast problem s 02/22/2010 Last Documented On 9 7:47AM ; [facility] Family medical history of high blood pre ssure 02/22/2010 Last Documented On 9 7:47AM ; [facility] Review of Systems Includes: Review of Systems from this encounter Systemic: Feeling fine. No symptoms and not tiring easily. No fever, no chills, no unusual bleeding, and no recent weight change. No pain. Head: No headache. Neck: No neck pain and no swollen glands in the neck. Eyes: No vision problems. Breasts: No breast symptoms, no breast lump, no pain in breast, and patient performs self breast exams. Cardiovascular: No chest pain or discomfort and no palpitations. Pulmonary: No pulmonary symptoms, no dyspnea, no cough, and no wheezing. Gastrointestinal: No heartburn. No nausea, no vomiting, no abdominal pain, no diarrhea, and no constipation. Genitourinary: No change in urinary frequency and no incomplete emptying of bladder. No urinary loss of control and no dysuria. No genital lesion, no pain during intercourse, and no vaginal dryness. No nonmenstrual bleeding. No vaginal discharge. Endocrine: No polydipsia, no hot flashes, and libido has not changed. Musculoskeletal: No back pain, no muscle aches, and no localized joint pain. Neurological: No dizziness. Psychological: No anxiety, no depression, and a desire to continue living. Skin: No pruritus. No skin lesions and no rash. Mental Status Includes: Mental Status from this encounter Description Oriented to time, place, and person No anxiety A desire to continue living Functional Status Includes: Functional Status from this encounter No Functional Status Recorded Physical Exam Includes: Physical Exam from this encounter Allergies Includes: Active Allergies No Known Allergies Encounters Encounter Provider Location Date Check-In Time Check-Out Time Diagnosis ANNUAL EDITOR PUBLICATIONS EXAM LIZA MILLARD RN NP [facility] FASHION ILLUSTRATOR 09/16/20 19 7:38AM 8:28AM Screen Malignant Neoplasm Cervix,Normal Female Exam Insurance Includes: Active Insurance Policies Plan Name Member ID Group # Subscriber Relationship Effect axel Dates 1 - [facility]/MEDICARE ADV/[employer] [id number] MARIA C HARPER Self Clinical Notes Includes: Clinical Notes from this encounter No Clinical Notes Recorded
--- OUTSIDE RECORDS SUMMARY | 2025-02-03 09:18 | XMS_ITS ---
Author Organization [facility] Address [address] [place] [address] Phone Care Team Providers Care Policy Issue Clerk Name Role Phone Unavailable Unavailable Unavailable Reason for Referral Date Encounter Description Provider Reason for Referral 10/24/19 * PHONE CALL LIZA MILLARD RN [facility] Req uest Consultation By Specialist Problems Includes: Active, inactive, and resolved Problems All Visits Onset Date Resolved Date Provider Condition S tatus Colonic Diverticulosis 12/31/2023 LIZA MILLARD RN [facility] Active Last Documented On 4 1:10PM ; [facility] Reported Family History of Heart Disease 04/21/2015 LIZA MILLARD RN [facility] P Active Last Documented On 04/21/2015 10:09AM ; [facility] Note: Unchanged - Mom, maternal sides History of Breast Fibrocystic Disease 04/14/2013 LIZA MILLARD RN [facility] P Active Last Documented On 04/14/2013 3:01PM ; [facility] Note: Unchanged HYPERTENSION NOS 02/22/2010 ANGEL ROTHMAN M.D. Active Last Documented On 0 12:53PM ; [facility] Plan of Treatment Findings Encounter Date Ordered Clinical summary pro vided to patient WELL WOMAN - NEW PATIENT with LIZA MILLARD RN [facility] 12/31/2023 Last Documented On 4 1:37PM ; [facility] Ordered weight loss diet WELL WOMAN - NE W PATIENT with LIZA CASIANO 12/31/2023 Last Documented On 4 1:37PM ; [facility] Ordered Transition in care, clinical summary provided * PHONE CALL with LIZA CASIANO 10/24/2019 Last Documented On 9 8:22AM ; [facility] Requested request consultati on by specialist * PHONE CALL with LIZA MILLARD RN [facility] 10/24/2019 Last Documented On 9 8:22AM ; [facility] Ordered Clinical summary pro vided to patient ANNUAL CONSTRUCTION CONTROLLER EXAM with LIZA MILLARD RN [facility] 09/16/2019 Last Documented On 9 8:25AM ; [facility] Ordered weight loss diet ANNUAL CONSTRUCTION CONTROLLER EXAM with NHUNG MILLARD RN [facility] 09/16/2019 Last Documented On 9 8:25AM ; [facility] Ordered Clinical summary pro vided to patient ANNUAL CONSTRUCTION CONTROLLER EXAM with LIZA MILLARD RN [facility] 09/12/2018 Last Documented On 8 8:24AM ; [facility] Ordered weight loss diet ANNUAL CONSTRUCTION CONTROLLER EXAM with NHUNG MILLARD RN [facility] 09/12/2018 Last Documented On 8 8:24AM ; [facility] Ordered Clinical summary pro vided to patient ANNUAL CONSTRUCTION CONTROLLER EXAM with LIZA MILLARD RN [facility] 09/11/2017 Last Documented On 7 8:22AM ; [facility] Ordered weight loss diet ANNUAL CONSTRUCTION CONTROLLER EXAM with NHUNG MILLARD RN [facility] 09/11/2017 Last Documented On 7 8:22AM ; [facility] Ordered Clinical summary pro vided to patient ANNUAL CONSTRUCTION CONTROLLER EXAM with LIZA MILLARD RN [facility] 04/21/2015 Last Documented On 5 10:11AM ; [facility] Ordered Clinical summary pro vided to patient BENZENE WASHER EXAM with LIZA MILLARD RN [facility] 04/15/2014 Last Documented On 4 10:01AM ; [facility] Ordered Clinical summary pro vided to patient NEW BENZENE WASHER EXAM with LIZA MILLARD RN [facility] 04/14/2013 Last Documented On 3 3:26PM ; [facility] Pending Tests Order Diagnosis Results Due Ordering P royvroseder Radiology @ other - *MAMMOGRAPHY SCREENING MAMMOGRAM Encntr screen mammogram for malignant neoplasm of breast 01/14/24 LIZA MILLARD RN [facility] Last Documented On 4 2:37PM ; [facility] Referrals To Diagnosis Breast Specialist ANGELA EDMONDS MD Other signs and symptoms in breast Note: L breast U/S 1:00 midd le depth hypoechoic asymmetric denisity BIRADS [address] Hudson's protocols thanks Last Documented On 0 10:16AM ; [facility] Instructions to patient Instructed to call if excess axel bleeding or abdominal/pelvic pain Last Documented On 4 1:12PM ; [facility] Instructions For Patient: Mo nthly Self Breast Exam Last Documented On 4 1:12PM ; [facility] Recommend diet and exercise at least 30 min three times per week Last Documented On 4 1:12PM ; [facility] Lose weight Last Documented On 9 7:56AM ; [facility] Instructed to call if excess axel bleeding or abdominal/pelvic pain Last Documented On 9 7:56AM ; [facility] Instructions For Patient: Mo nthly Self Breast Exam Last Documented On 9 7:56AM ; [facility] Recommend diet and exercise at least 30 min three times per week Last Documented On 9 7:56AM ; [facility] Lose weight Last Documented On 8 8:09AM ; [facility] Instructed to call if excess axel bleeding or abdominal/pelvic pain Last Documented On 8 8:09AM ; [facility] Instructions For Patient: Mo nthly Self Breast Exam Last Documented On 8 8:09AM ; [facility] Recommend diet and exercise at least 30 min three times per week Last Documented On 8 8:09AM ; [facility] Lose weight Last Documented On 7 8:03AM ; [facility] Instructed to call if excess axel bleeding or abdominal/pelvic pain Last Documented On 7 8:03AM ; [facility] Instructions For Patient: Mo nthly Self Breast Exam Last Documented On 7 8:03AM ; [facility] Recommend diet and exercise at least 30 min three times per week Last Documented On 7 8:03AM ; [facility] Instructions for patient : B reast Self Exam discussed and technique reviewed Last Documented On 5 9:37AM ; [facility] Instructed to call if excess axel bleeding or abdominal/pelvic pain Last Documented On 5 9:37AM ; [facility] Recommend diet and exercise at least 30 min three times per week Last Documented On 5 9:37AM ; [facility] Recommend preventative vacci nation including but not limited to influenza/flu vaccine, DTP, Rubella, Hepatitis B vaccination series Last Documented On 5 9:37AM ; [facility] Instructions for patient : B reast Self Exam discussed and technique reviewed Last Documented On 4 9:17AM ; [facility] Instructed to call if excess axel bleeding or abdominal/pelvic pain Last Documented On 4 9:17AM ; [facility] Recommend diet and exercise at least 30 min three times per week Last Documented On 4 9:17AM ; [facility] Recommend preventative vacci nation including but not limited to influenza/flu vaccine, DTP, Rubella, Hepatitis B vaccination series Last Documented On 4 9:17AM ; [facility] Instructions for patient : B reast Self Exam discussed and technique reviewed Last Documented On 3 2:58PM ; [facility] Instructed to call if excess axel bleeding or abdominal/pelvic pain Last Documented On 3 2:58PM ; [facility] Instructions For Patient: Mo nthly Self Breast Exam Last Documented On 3 2:58PM ; [facility] Recommend diet and exercise at least 30 min three times per week Last Documented On 3 2:58PM ; [facility] Recommend CBC, TSH, fasting glucose, fasting lipid panel if patient aged 25 or older Last Documented On 3 2:58PM ; [facility] Recommend preventative vacci nation including but not limited to influenza/flu vaccine, DTP, Rubella, Hepatitis B vaccination series Last Documented On 3 2:58PM ; [facility] Instructions for patient : B reast Self Exam discussed. Reviewed monthly self breast examination and technique Last Documented On 2 10:42AM ; [facility] Recommend diet and exercise at least 30 min three times per week Last Documented On 2 10:42AM ; [facility] Recommend preventative vacci nation including but not limited to influenza/flu vaccine, DTP, Rubella, Hepatitis B vaccination series Last Documented On 2 10:42AM ; [facility] Recommend annual pap smear e xamination or every three year if high risk hpv negative and 3 consecutive normal pap examination during preceding three years Last Documented On 2 10:42AM ; [facility] Recommend TSH, fasting gluco se, fasting lipid panel, CBC, BMP Last Documented On 2 10:42AM ; [facility] Recommend Calcium supplement ation and weight bearing exercise Last Documented On 2 10:42AM ; [facility] Recommended Bone Density Last Documented On 2 10:42AM ; [facility] Recommended Colonoscopy Pt r eferred to Gastroenetrologist. Pt understands that recommendation for colonoscopy is every 10 years after the age of 50 or age of 40 if first degree relative with history of colon cancer. Patient understands that failure to follow recommendation can lead to delayed diagnosis of colon cancer and patient accepts all responsibility regarding scheduling and follow up with tieing machine operator Last Documented On 2 10:42AM ; [facility] Instructions for patient : B reast Self Exam discussed. Reviewed monthly self breast examination and technique Last Documented On 1 9:29AM ; [facility] Recommend diet and exercise at least 30 min three times per week Last Documented On 1 9:29AM ; [facility] Discussed Gardasil vaccinati on and recommend vaccination for HPV prevention. Handout given. Patient undertsands sexual transmission of high-risk HPV and association with abnormal pap smear and cervical cancer. recommend to decrease high risk behaviors such as: number of sexual partners, smoking, and contraceptive use Last Documented On 9:29AM ; [facility] Recommend preventative vacci nation including but not limited to influenza/flu vaccine, DTP, Rubella, Hepatitis B vaccination series Last Documented On 9:29AM ; [facility] Recommend annual pap smear e xamination or every three year if high risk hpv negative and 3 consecutive normal pap examination during preceding three years Last Documented On 1 9:29AM ; [facility] Recommend TSH, fasting gluco se, fasting lipid panel, CBC, BMP Last Documented On 1 9:29AM ; [facility] Recommend Calcium supplement ation and weight bearing exercise Last Documented On 1 9:29AM ; [facility] Recommended Bone Density Last Documented On 1 9:29AM ; [facility] Recommended Colonoscopy Pt r eferred to Gastroenetrologist. Pt understands that recommendation for colonoscopy is every 10 years after the age of 50 or age of 40 if first degree relative with history of colon cancer. Patient understands that failure to follow recommendation can lead to delayed diagnosis of colon cancer and patient accepts all responsibility regarding scheduling and follow up with tieing machine operator Last Documented On 1 9:29AM ; [facility] Instructions for patient : B reast Self Exam discussed. Reviewed monthly self breast examination and technique Last Documented On 0 2:41PM ; [facility] Recommend diet and exercise at least 30 min three times per week Last Documented On 0 2:41PM ; [facility] Discussed Gardasil vaccinati on and recommend vaccination for HPV prevention. Handout given. Patient undertsands sexual transmission of high-risk HPV and association with abnormal pap smear and cervical cancer. recommend to decrease high risk behaviors such as: number of sexual partners, smoking, and contraceptive use Last Documented On 0 2:41PM ; [facility] Recommend preventative vacci nation including but not limited to influenza/flu vaccine, DTP, Rubella, Hepatitis B vaccination series Last Documented On 0 2:41PM ; [facility] Recommend annual pap smear e xamination or every three year if high risk hpv negative and 3 consecutive normal pap examination during preceding three years Last Documented On 0 2:41PM ; [facility] Recommend TSH, fasting gluco se, fasting lipid panel, CBC, BMP Last Documented On 0 2:41PM ; [facility] Recommend Calcium supplement ation and weight bearing exercise Last Documented On 0 2:41PM ; [facility] Recommended Bone Density Last Documented On 0 2:41PM ; [facility] Recommended Colonoscopy Pt r eferred to Gastroenetrologist. Pt understands that recommendation for colonoscopy is every 10 years after the age of 50 or age of 40 if first degree relative with history of colon cancer. Patient understands that failure to follow recommendation can lead to delayed diagnosis of colon cancer and patient accepts all responsibility regarding scheduling and follow up with tieing machine operator Last Documented On 0 2:41PM ; [facility] Education and Decision Aids were provided during visit for: Patient Education: Daily herrera cium and vitamin D Last Documented On 4 1:12PM ; [facility] Patient Education: Daily herrera cium and vitamin D Last Documented On 9 7:56AM ; [facility] Patient Education: Daily herrera cium and vitamin D Last Documented On 8 8:09AM ; [facility] Patient Education: Daily herrera cium and vitamin D Last Documented On 7 8:03AM ; [facility] Patient Education: Daily herrera cium and vitamin D Last Documented On 5 9:37AM ; [facility] Patient Education: Daily herrera cium and vitamin D Last Documented On 4 9:17AM ; [facility] Discussed smoking and drug u se Last Documented On 3 2:58PM ; [facility] Patient Education: Daily herrera cium and vitamin D Last Documented On 3 2:58PM ; [facility] Patient Education: weight be aring exercise Last Documented On 3 2:58PM ; [facility] Patient will maintain adequa te intake of dietary Ca+ and Mg+ Last Documented On 3 2:58PM ; [facility] Assessments Includes: Assessments for all patient encounters Findings Encounter Date NORMAL FEMALE EXAM WELL WOMAN - NEW PATIENT with LIZA MILLARD RN [facility] 12/31/2023 Last Documented On 4 1:37PM ; [facility] Screen malignant neoplasm cervix WELL WO MAN - NEW PATIENT with LIZA MILLARD RN [facility] 12/31/2023 Last Documented On 4 1:37PM ; [facility] NORMAL FEMALE EXAM ANNUAL CONSTRUCTION CONTROLLER EXAM with LIZA MILLARD RN [facility] 09/16/2019 Last Documented On 9 8:25AM ; [facility] Screen malignant neoplasm cervix ANNUAL CONSTRUCTION CONTROLLER EXAM with LIZA MILLARD RN [facility] 09/16/2019 Last Documented On 9 8:25AM ; [facility] NORMAL FEMALE EXAM ANNUAL CONSTRUCTION CONTROLLER EXAM with LIZA MILLARD RN [facility] 09/12/2018 Last Documented On 8 8:24AM ; [facility] Screen malignant neoplasm cervix ANNUAL CONSTRUCTION CONTROLLER EXAM with LIZA MILLARD RN [facility] 09/12/2018 Last Documented On 8 8:24AM ; [facility] NORMAL FEMALE EXAM ANNUAL CONSTRUCTION CONTROLLER EXAM with LIZA MILLARD RN [facility] 09/11/2017 Last Documented On 7 8:22AM ; [facility] Screen malignant neoplasm cervix ANNUAL CONSTRUCTION CONTROLLER EXAM with LIZA MILLARD RN [facility] 09/11/2017 Last Documented On 7 8:22AM ; [facility] Family history of uterine ca ncer Sister ANNUAL CONSTRUCTION CONTROLLER EXAM with LIZA MILLARD RN [facility] 04/21/2015 Last Documented On 5 10:11AM ; [facility] MAMMOGRAM SCREENING ANNUAL CONSTRUCTION CONTROLLER EXAM with LIZA MILLARD RN [facility] 04/21/2015 Last Documented On 5 10:11AM ; [facility] Routine gynecological exam ANNUAL CONSTRUCTION CONTROLLER EXAM with LIZA MILLARD RN [facility] 04/21/2015 Last Documented On 5 10:11AM ; [facility] Screening Malig. Neoplasm Rectum ANNUAL CONSTRUCTION CONTROLLER EXAM with LIZA MILLARD RN [facility] 04/21/2015 Last Documented On 5 10:11AM ; [facility] MAMMOGRAM SCREENING BENZENE WASHER EXAM with LIZA MILLARD RN [facility] 04/15/2014 Last Documented On 4 10:01AM ; [facility] Routine gynecological exam BENZENE WASHER EXAM with LIZA MILLARD RN [facility] 04/15/2014 Last Documented On 4 10:01AM ; [facility] Screening Malig. Neoplasm Rectum BENZENE WASHER EXAM with Sabi MILLARD RN [facility] 04/15/2014 Last Documented On 4 10:01AM ; [facility] Hemorrhoids NEW BENZENE WASHER EXAM with LIZA MILLARD RN [facility] 04/14/2013 Last Documented On 3 3:26PM ; [facility] MAMMOGRAM SCREENING NEW BENZENE WASHER EXAM with LIZA LECHUGA RN [facility] 04/14/2013 Last Documented On 3 3:26PM ; [facility] NORMAL FEMALE EXAM NEW BENZENE WASHER EXAM with LIZA ROTH RN [facility] 04/14/2013 Last Documented On 3 3:26PM ; [facility] Routine gynecological exam NEW BENZENE WASHER EXAM with CAM MILLARD RN [facility] 04/14/2013 Last Documented On 3 3:26PM ; [facility] Screening Malig. Neoplasm Rectum NEW BENZENE WASHER EXAM with LIZA MILLARD RN [facility] 04/14/2013 Last Documented On 3 3:26PM ; [facility] Asymptomatic postmenopausal status ANNUA L CONSTRUCTION CONTROLLER EXAM with ANGEL ROTHMAN M.D. 03/20/2012 Last Documented On 2 10:55AM ; [facility] MAMMOGRAM SCREENING ANNUAL CONSTRUCTION CONTROLLER EXAM with ANGEL ROTHMAN M.D. 03/20/2012 Last Documented On 2 10:55AM ; [facility] NORMAL FEMALE EXAM ANNUAL CONSTRUCTION CONTROLLER EXAM with ANGEL ROTHMAN M.D. 03/20/2012 Last Documented On 2 10:55AM ; [facility] Screening Malig. Neoplasm Rectum ANNUAL CONSTRUCTION CONTROLLER EXAM with ANGEL ROTHMAN M.D. 03/20/2012 Last Documented On 2 10:55AM ; [facility] Asymptomatic postmenopausal status ANNUA L CONSTRUCTION CONTROLLER EXAM with ANGEL ROTHMAN M.D. 03/16/2011 Last Documented On 1 9:51AM ; [facility] MAMMOGRAM SCREENING ANNUAL CONSTRUCTION CONTROLLER EXAM with ANGEL ROTHMAN M.D. 03/16/2011 Last Documented On 1 9:51AM ; [facility] NORMAL FEMALE EXAM ANNUAL CONSTRUCTION CONTROLLER EXAM with ANGEL ROTHMAN M.D. 03/16/2011 Last Documented On 1 9:51AM ; [facility] Screening Malig. Neoplasm Rectum ANNUAL CONSTRUCTION CONTROLLER EXAM with ANGEL ROHTMAN M.D. 03/16/2011 Last Documented On 1 9:51AM ; [facility] Asymptomatic postmenopausal status BENZENE WASHER EXAM with ANGEL ROTHMAN M.D. 03/15/2010 Last Documented On 0 2:55PM ; [facility] MAMMOGRAM SCREENING BENZENE WASHER EXAM with ANGEL MORJEON M.D. 03/15/2010 Last Documented On 0 2:55PM ; [facility] NORMAL FEMALE EXAM BENZENE WASHER EXAM with ANGEL TAFOYA M.D. 03/15/2010 Last Documented On 0 2:55PM ; [facility] SCREENING FOR CONDITION NEC BENZENE WASHER EXAM with MARIBELL ROTHMAN M.D. 03/15/2010 Last Documented On 0 2:55PM ; [facility] Screening Malig. Neoplasm Rectum BENZENE WASHER EXAM with Ericka ROTHMAN M.D. 03/15/2010 Last Documented On 0 2:55PM ; [facility] Instructions Includes: Instructions for all patient encounters Instructions to patient Instructed to call if excess axel bleeding or abdominal/pelvic pain Last Documented On 4 1:12PM ; [facility] Instructions For Patient: Mo nthly Self Breast Exam Last Documented On 4 1:12PM ; [facility] Recommend diet and exercise at least 30 min three times per week Last Documented On 4 1:12PM ; [facility] Lose weight Last Documented On 9 7:56AM ; [facility] Instructed to call if excess axel bleeding or abdominal/pelvic pain Last Documented On 9 7:56AM ; [facility] Instructions For Patient: Mo nthly Self Breast Exam Last Documented On 9 7:56AM ; [facility] Recommend diet and exercise at least 30 min three times per week Last Documented On 9 7:56AM ; [facility] Lose weight Last Documented On 8 8:09AM ; [facility] Instructed to call if excess axel bleeding or abdominal/pelvic pain Last Documented On 8 8:09AM ; [facility] Instructions For Patient: Mo nthly Self Breast Exam Last Documented On 8 8:09AM ; [facility] Recommend diet and exercise at least 30 min three times per week Last Documented On 8 8:09AM ; [facility] Lose weight Last Documented On 7 8:03AM ; [facility] Instructed to call if excess axel bleeding or abdominal/pelvic pain Last Documented On 7 8:03AM ; [facility] Instructions For Patient: Mo nthly Self Breast Exam Last Documented On 7 8:03AM ; [facility] Recommend diet and exercise at least 30 min three times per week Last Documented On 7 8:03AM ; [facility] Instructions for patient : B reast Self Exam discussed and technique reviewed Last Documented On 5 9:37AM ; [facility] Instructed to call if excess axel bleeding or abdominal/pelvic pain Last Documented On 5 9:37AM ; [facility] Recommend diet and exercise at least 30 min three times per week Last Documented On 5 9:37AM ; [facility] Recommend preventative vacci nation including but not limited to influenza/flu vaccine, DTP, Rubella, Hepatitis B vaccination series Last Documented On 5 9:37AM ; [facility] Instructions for patient : B reast Self Exam discussed and technique reviewed Last Documented On 4 9:17AM ; [facility] Instructed to call if excess axel bleeding or abdominal/pelvic pain Last Documented On 4 9:17AM ; [facility] Recommend diet and exercise at least 30 min three times per week Last Documented On 4 9:17AM ; [facility] Recommend preventative vacci nation including but not limited to influenza/flu vaccine, DTP, Rubella, Hepatitis B vaccination series Last Documented On 4 9:17AM ; [facility] Instructions for patient : B reast Self Exam discussed and technique reviewed Last Documented On 3 2:58PM ; [facility] [facility] Instructed to call if excess axel bleeding or abdominal/pelvic pain Last Documented On 3 2:58PM ; [facility] Instructions For Patient: Mo nthly Self Breast Exam Last Documented On 3 2:58PM ; [facility] Recommend diet and exercise at least 30 min three times per week Last Documented On 3 2:58PM ; [facility] Recommend CBC, TSH, fasting glucose, fasting lipid panel if patient aged 25 or older Last Documented On 3 2:58PM ; [facility] Recommend preventative vacci nation including but not limited to influenza/flu vaccine, DTP, Rubella, Hepatitis B vaccination series Last Documented On 3 2:58PM ; [facility] Instructions for patient : B reast Self Exam discussed. Reviewed monthly self breast examination and technique Last Documented On 2 10:42AM ; [facility] Recommend diet and exercise at least 30 min three times per week Last Documented On 2 10:42AM ; [facility] Recommend preventative vacci nation including but not limited to influenza/flu vaccine, DTP, Rubella, Hepatitis B vaccination series Last Documented On 2 10:42AM ; [facility] Recommend annual pap smear e xamination or every three year if high risk hpv negative and 3 consecutive normal pap examination during preceding three years Last Documented On 2 10:42AM ; [facility] Recommend TSH, fasting gluco se, fasting lipid panel, CBC, BMP Last Documented On 2 10:42AM ; [facility] Recommend Calcium supplement ation and weight bearing exercise Last Documented On 2 10:42AM ; [facility] Recommended Bone Density Last Documented On 2 10:42AM ; [facility] Recommended Colonoscopy Pt r eferred to Gastroenetrologist. Pt understands that recommendation for colonoscopy is every 10 years after the age of 50 or age of 40 if first degree relative with history of colon cancer. Patient understands that failure to follow recommendation can lead to delayed diagnosis of colon cancer and patient accepts all responsibility regarding scheduling and follow up with tieing machine operator Last Documented On 2 10:42AM ; [facility] Instructions for patient : B reast Self Exam discussed. Reviewed monthly self breast examination and technique Last Documented On 1 9:29AM ; [facility] Recommend diet and exercise at least 30 min three times per week Last Documented On 1 9:29AM ; [facility] Discussed Gardasil vaccinati on and recommend vaccination for HPV prevention. Handout given. Patient undertsands sexual transmission of high-risk HPV and association with abnormal pap smear and cervical cancer. recommend to decrease high risk behaviors such as: number of sexual partners, smoking, and contraceptive use Last Documented On 1 9:29AM ; [facility] Recommend preventative vacci nation including but not limited to influenza/flu vaccine, DTP, Rubella, Hepatitis B vaccination series Last Documented On 9:29AM ; [facility] Recommend annual pap smear e xamination or every three year if high risk hpv negative and 3 consecutive normal pap examination during preceding three years Last Documented On 1 9:29AM ; [facility] Recommend TSH, fasting gluco se, fasting lipid panel, CBC, BMP Last Documented On 9:29AM ; [facility] Recommend Calcium supplement ation and weight bearing exercise Last Documented On 9:29AM ; [facility] Recommended Bone Density Last Documented On 1 9:29AM ; [facility] Recommended Colonoscopy Pt r eferred to Gastroenetrologist. Pt understands that recommendation for colonoscopy is every 10 years after the age of 50 or age of 40 if first degree relative with history of colon cancer. Patient understands that failure to follow recommendation can lead to delayed diagnosis of colon cancer and patient accepts all responsibility regarding scheduling and follow up with tieing machine operator Last Documented On 1 9:29AM ; [facility] Instructions for patient : B reast Self Exam discussed. Reviewed monthly self breast examination and technique Last Documented On 0 2:41PM ; [facility] Recommend diet and exercise at least 30 min three times per week Last Documented On 0 2:41PM ; [facility] Discussed Gardasil vaccinati on and recommend vaccination for HPV prevention. Handout given. Patient undertsands sexual transmission of high-risk HPV and association with abnormal pap smear and cervical cancer. recommend to decrease high risk behaviors such as: number of sexual partners, smoking, and contraceptive use Last Documented On 0 2:41PM ; [facility] Recommend preventative vacci nation including but not limited to influenza/flu vaccine, DTP, Rubella, Hepatitis B vaccination series Last Documented On 0 2:41PM ; [facility] Recommend annual pap smear e xamination or every three year if high risk hpv negative and 3 consecutive normal pap examination during preceding three years Last Documented On 0 2:41PM ; [facility] Recommend TSH, fasting gluco se, fasting lipid panel, CBC, BMP Last Documented On 0 2:41PM ; [facility] Recommend Calcium supplement ation and weight bearing exercise Last Documented On 0 2:41PM ; [facility] Recommended Bone Density Last Documented On 0 2:41PM ; [facility] Recommended Colonoscopy Pt r eferred to Gastroenetrologist. Pt understands that recommendation for colonoscopy is every 10 years after the age of 50 or age of 40 if first degree relative with history of colon cancer. Patient understands that failure to follow recommendation can lead to delayed diagnosis of colon cancer and patient accepts all responsibility regarding scheduling and follow up with tieing machine operator Last Documented On 0 2:41PM ; [facility] Education and Decision Aids were provided during visit for: Patient Education: Daily herrera cium and vitamin D Last Documented On 4 1:12PM ; [facility] Patient Education: Daily herrera cium and vitamin D Last Documented On 9 7:56AM ; [facility] Patient Education: Daily herrera cium and vitamin D Last Documented On 8 8:09AM ; [facility] Patient Education: Daily herrera cium and vitamin D Last Documented On 7 8:03AM ; [facility] Patient Education: Daily herrera cium and vitamin D Last Documented On 5 9:37AM ; [facility] Patient Education: Daily herrera cium and vitamin D Last Documented On 4 9:17AM ; [facility] Discussed smoking and drug u se Last Documented On 3 2:58PM ; [facility] Patient Education: Daily herrera cium and vitamin D Last Documented On 3 2:58PM ; [facility] Patient Education: weight be aring exercise Last Documented On 3 2:58PM ; [facility] Patient will maintain adequa te intake of dietary Ca+ and Mg+ Last Documented On 3 2:58PM ; [facility] Medical Equipment - Implanted Devices Includes: Current and historical Devices No Medical Equipment Recorded Medications Includes: Current and historical Medications Current Medications (continue as prescribed) D3 50 MCG (1999) Oral Tablet 12/31/2023 Provider: Diagnosis: Last Documented On 12/31/2023 12:57PM By Cornelia Vigil ; [facility] QC Vitamin B12 1000 MCG Oral Tablet Extended Release 0 12/31/2023 Provider: Diagnosis: Last Documented On 12/31/2023 12:57PM By Cornelia Vigil ; [facility] PreserVision AREDS 2 Oral Capsule 12/31/2023 Provide r: Diagnosis: Last Documented On 12/31/2023 12:58PM By Cornelia Vigil ; [facility] Verapamil HCl ER 360 MG Oral Capsule Extended Release 24 Hour 11/29/2023 Provider: KACIE SINCLAIR MD Diagnosis: Last Documented On 12/31/2023 12:56PM By Cornelia Vigil ; [facility] Lisinopril 10 MG Oral Tablet 11/08/2023 Provider: KACIE SINCLAIR MD Diagnosis: Last Documented On 12/31/2023 12:56PM By Cornelia Vigil ; [facility] Past Medications on file Verapamil HCl ER 120 MG Caps ule, extended-release 24 hour 04/21/2015 - 12/31/2023 Provider: Diagnosis: Last Documented On 12/31/2023 12:56PM By Cornelia Vigil ; [facility] Verapamil HCl 120 MG OR TABS 03/14/2010 - 09/11/2017 P fer: Diagnosis: Last Documented On 09/11/2017 8:01AM By Candice Kim MA ; [facility] Medications Administered Includes: Administered Medications in patient's chart No Administered Medications Recorded Results Includes: Results from 02/04/2024 through 02/03/2025 No Results Recorded For Specified Dates History of Present Illness History of Present Illness not supported for this document type No History of Present Illness Recorded Social History Description Last Updated Activities 12/31/2023 Last Documented On 1:37PM ; [facility] Alcohol use: 2 drinks or less per day OC C 12/31/2023 Last Documented On 4 1:37PM ; [facility] Currently 12/31/2023 Last Documented On 4 1:37PM ; [facility] Education history 12/31/2023 Last Documented On 4 1:37PM ; [facility] In monogamous relationship 12/31/2023 Last Documented On 4 1:37PM ; [facility] Non-smoker 12/31/2023 Last Documented On 4 1:37PM ; [facility] Not a smoker 12/31/2023 Last Documented On 4 1:37PM ; [facility] Not exercising regularly 12/31/2023 Last Documented On 4 1:37PM ; [facility] Not using alcohol 12/31/2023 Last Documented On 4 1:37PM ; [facility] Not using drugs 12/31/2023 Last Documented On 4 1:37PM ; [facility] Personal history 12/31/2023 Last Documented On 4 1:37PM ; [facility] Sexually active 12/31/2023 Last Documented On 4 1:37PM ; [facility] Sexually active with 1 partners in the l ast year 12/31/2023 Last Documented On 4 1:37PM ; [facility] Smoking status : Never smoker 12/31/2023 Last Documented On 4 1:37PM ; [facility] Social history unchanged 12/31/2023 Last Documented On 4 1:37PM ; [facility] Tobacco non-user 12/31/2023 Last Documented On 4 1:37PM ; [facility] Has not used injectable drugs 12/31/2023 Last Documented On 4 1:37PM ; [facility] Never a smoker 12/31/2023 Last Documented On 4 1:37PM ; [facility] No consumption of alcohol 12/31/2023 Last Documented On 4 1:37PM ; [facility] Procedures and Surgical History Surgical History Last Updated Surgical history unchanged 04/21/2015 Last Documented On 5 10:11AM ; [facility] Surgical / procedural history C SECTION 1980 AND 1983 04/15/2014 Last Documented On 4 10:01AM ; [facility] Dilation + Curettage 03/15/2010 Last Documented On 0 2:55PM ; [facility] History of cholecystectomy 03/15/2010 Last Documented On 0 2:55PM ; [facility] Tonsillectomy 03/15/2010 Last Documented On 0 2:55PM ; [facility] Medical History Includes: Medical History in patient's chart Description Last Updated A mammogram was performed 12/31/2023 Last Documented On 4 1:37PM ; [facility] Surgical / procedural history C SECTION 1979 AND 1982 ~BREAST BX-2020--WNL 12/31/2023 Last Documented On 4 1:37PM ; [facility] History of diaignostic fiber optic colonoscopy 09/2023 Jude--repeat 5 years 12/31/2023 Last Documented On 4 1:37PM ; [facility] History of a DXA of the lateral lumbar s pine was performed 201812/31/2023 Last Documented On 4 1:37PM ; [facility] History of Pap smear done 2018 Last Documented On 4 1:37PM ; [facility] History of screening mammogram was perfo rmed 11/202212/31/2023 Last Documented On 4 1:37PM ; [facility] Last mammogram date: 11/202212/31/2023 Last Documented On 4 1:37PM ; [facility] Last pap smear date 201812/31/2023 Last Documented On 4 1:37PM ; [facility] Patient recently had a dexa scan 2018 Last Documented On 4 1:37PM ; [facility] # [facility] Anesthesia: General 12/31/2023 Last Documented On 4 1:37PM ; [facility] Delivery date: June 24, 198012/31 Last Documented On 4 1:37PM ; [facility] # 1 Hours in labor ? 12/31/2023 Last Documented On 4 1:37PM ; [facility] # 1 type delivery: 12/31/2023 Last Documented On 4 1:37PM ; [facility] # 1 Weeks: Full term 12/31/2023 Last Documented On 4 1:37PM ; [facility] # 1 Weight 6lbs 9 ozs 12/31/2023 Last Documented On 4 1:37PM ; [facility] # 2 type delivery: 12/31/2023 Last Documented On 4 1:37PM ; [facility] # 2 Anesthesia: Spinal Block 12/31/2023 Last Documented On 4 1:37PM ; [facility] # 2 Delivery date: July 31, 1985 Last Documented On 4 1:37PM ; [facility] # 2 Hours in labor: 0 12/31/2023 Last Documented On 4 1:37PM ; [facility] # 2 Weeks: Full Term 12/31/2023 Last Documented On 4 1:37PM ; [facility] # 2 Weight: 7lbs 60zs 12/31/2023 Last Documented On 4 1:37PM ; [facility] An HIV test was not performed 12/31/2023 Last Documented On 4 1:37PM ; [facility] Elective (s) 0 12/31/2023 Last Documented On 4 1:37PM ; [facility] Exercise 12/31/2023 Last Documented On 4 1:37PM ; [facility] Gallbladder disease 12/31/2023 Last Documented On 4 1:37PM ; [facility] Kidney disease 12/31/2023 Last Documented On 4 1:37PM ; [facility] No previous STD 12/31/2023 Last Documented On 4 1:37PM ; [facility] No. of miscarriages: 0 12/31/2023 Last Documented On 4 1:37PM ; [facility] No. of Pregnancies: 2 12/31/2023 Last Documented On 4 1:37PM ; [facility] Please list all surgeries: T onsillectomy and adenoidectomy - 1958 ?Salmonella Infection - 1964 ?2 C-Sections - 1979 and 1982D&C - 1989 ?Cholecystectomy - 2000 ? 12/31/2023 Last Documented On 4 1:37PM ; [facility] Previous live (s) 2 12/31/2023 Last Documented On 4 1:37PM ; [facility] Previous premature delivery(s) 0 024 Last Documented On 4 1:37PM ; [facility] Recent immunization for flu Jun 2023 Last Documented On 4 1:37PM ; [facility] Reported Tdap/Td Vaccine Oct 20132023 Last Documented On 4 1:37PM ; [facility] Sex of Child # 1: Female 12/31/2023 Last Documented On 4 1:37PM ; [facility] Sex of Child # 2: Male 12/31/2023 Last Documented On 4 1:37PM ; [facility] History of complete colonoscopy 10/2019 Last Documented On 9 8:25AM ; [facility] PRIMARY CARE PROVIDER : DR Baird 09/12 Last Documented On 8 8:24AM ; [facility] A colonoscopy was performed [address] [place] [address] polyps--repeat 5 years 09/12/2018 Last Documented On 8 8:24AM ; [facility] Result: normal [facility] wnl 09/12/2018 Last Documented On 8 8:24AM ; [facility] Not sexually active 04/21/2015 Last Documented On 5 10:11AM ; [facility] No recent change in medical history 04/05 Last Documented On 4 10:01AM ; [facility] Result: normal 03/20/2012 Last Documented On 2 10:55AM ; [facility] section 03/15/2010 Last Documented On 0 2:55PM ; [facility] 2 03/15/2010 Last Documented On 0 2:55PM ; [facility] History of benign essential hypertension 03/15/2010 Last Documented On 0 2:55PM ; [facility] History of breast fibrocystic disease Last Documented On 0 2:55PM ; [facility] LMP: 1999 03/15/2010 Last Documented On 0 2:55PM ; [facility] Para 2 03/15/2010 Last Documented On 0 2:55PM ; [facility] D&C ~LB 02/22/2010 Last Documented On 0 12:57PM ; [facility] 2 living children 02/22/2010 Last Documented On 0 12:57PM ; [facility] Hypertension 02/22/2010 Last Documented On 0 12:57PM ; [facility] Family History Includes: Family History in patient's chart Description Last Updated Family history of malignant female breast neoplasm Maternal Aunts, 1st cousin at 30 yearls old ~Sister-age 72 12/31/2023 Last Documented On 4 1:37PM ; [facility] Family history of (female) genital cance r 04/21/2015 Last Documented On 5 10:11AM ; [facility] Family history of carcinoma of the uteru s 04/21/2015 Last Documented On 5 10:11AM ; [facility] Family history of diabetes mellitus Mom, Maternal Grandma, Maternal aunts 04/21/2015 Last Documented On 5 10:11AM ; [facility] Family history of heart disease Mom, mat ernal sides 04/21/2015 Last Documented On 5 10:11AM ; [facility] Family history of hypertension Mom, mate rnal side 04/21/2015 Last Documented On 5 10:11AM ; [facility] Family history of uterine cancer Sister 04/21/2015 Last Documented On 5 10:11AM ; [facility] Family history unchanged 04/21/2015 Last Documented On 5 10:11AM ; [facility] No family history of hypercholesterolemi a 03/16/2011 Last Documented On 1 9:51AM ; [facility] No family history of malignant neoplasm of the large intestine 03/16/2011 Last Documented On 1 9:51AM ; [facility] No family history of malignant neoplasm of the ovary 03/16/2011 Last Documented On 1 9:51AM ; [facility] First child named MYKE 197903/15/2010 Last Documented On 0 2:55PM ; [facility] Second child named BELKIS 198203/15/2010 Last Documented On 0 2:55PM ; [facility] Spouse name: JAD 03/15/2010 Last Documented On 0 2:55PM ; [facility] Family history of Cancer 02/22/2010 Last Documented On 0 12:57PM ; [facility] Family history of Diabetes 02/22/2010 Last Documented On 0 12:57PM ; [facility] Family medical history of Breast problem s 02/22/2010 Last Documented On 0 12:57PM ; [facility] Family medical history of high blood pre ssure 02/22/2010 Last Documented On 0 12:57PM ; [facility] Review of Systems Review of Systems not supported for this document type No Review of Systems Recorded Mental Status Description Oriented to time, place, and person No anxiety A desire to continue living Functional Status No Functional Status Recorded Physical Exam Physical Exam not supported for this document type No Physical Exam Recorded Immunizations Includes: Immunizations in patient's chart Vaccine Dose # Date Site Reaction(s) Status Source Td 1 Complete (Reported) Emy ent Last Documented On 1 9:32AM ; [facility] Allergies Includes: Active, inactive, and resolved Allergies No Known Allergies Insurance Includes: Active Insurance Policies Plan Name Member ID Group # Subscriber Relationship Effect axel Dates 1 - [facility]/MEDICARE ADV/[employer] [id number] MARIA C HARPER Self Clinical Notes Includes: Signed Clinical Notes starting from 11/24/2022 No Clinical Notes Recorded
--- OUTSIDE RECORDS SUMMARY | 2025-02-03 09:18 | XMS_ITS | Clinical Summary ---
Author Organization [facility] Address [address] [place] [id number] Care Team Providers Care Processing Manager Name Role Phone Bibiana Carver MD Primary Care Provider Allergies No known active allergies Medications verapamil SR (CALAN SR) 180 mg CR tablet Take 180 mg by mouth nightly Active Active Problems No known active problems Surgical History Surgery Date Site/Laterality Comments TONSILECTOMY, ADENOIDECTOMY, BILATERAL MYRINGOTOMY AND TUBES 11/05/1958 - 11/04/1959 SECTION 11/05/1979 - 11/04/1980 1983 DILATION AND CURETTAGE OF UTERUS 11/05/1985 - 11/04/1986 CHOLECYSTECTOMY BREAST BIOPSY 10/19/2021 Left Medical History Medical History Date Comments Overweight Family History Medical History Relation Name Comments Breast cancer Cousin larynx cancer Father Prostate cancer Father's Brother 1 Colon cancer Father's Brother 2 Breast cancer Mother's Sister 1 maternal aunt x3 Pancreatic cancer Mother's Sister 1 maternal aunt x3 p ossible Uterine cancer Mother's Sister 1 maternal aunt x3 Breast cancer Mother's Sister 2 Uterine cancer Mother's Sister 2 Bone cancer Paternal Grandfather Prostate cancer Paternal Grandfather Atypical Hyperplasia Sister Kateryna Relation Name Status Comments Cousin Alive Father Father's Brother 1 Father's Brother 2 Mother Mother's Sister 1 maternal aunt x3 Alive Mother's Sister 2 Alive Paternal Grandfather Sister Kateryna Alive Social History Tobacco Use Types Packs/Day Years Used Date Smoking Tobacco: Never Comments No Sex and Gender Information Value Date Recorded Sex Assigned at Not on file Legal Sex Female 10:40 AM 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 Gender Identity Not on file Sexual Orientation Not on file Obstetrics History Last Filed Vital Signs Vital Sign Reading Time Taken Comments Blood Pressure - - Pulse - - Temperature - - Respiratory Rate - - Oxygen Saturation - - Inhaled Oxygen Concentration - - Weight 104.3 kg (230 lb) 12/23/2019 8:19 AM 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 Height 160 cm (5' 3 ) 12/23/2019 8:19 AM 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 Body Mass Index 40.74 12/23/2019 8:19 AM 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 Plan of Treatment Health Maintenance Due Date Last Done Comments Colon Cancer Screening-Colonoscopy 1955 Depression Screening 1955 Fall Risk Assessment 1955 Hepatitis C Screening 1955 Osteoporosis Screening-Bone Density Scan 1955 DTaP/Tdap/Td Vaccine (1 - Tdap) 1964 Hepatitis B Screening 1971 Zoster Vaccine (1 of 2) 2003 Well Visit 65+ 2018 Pneumococcal vaccine 65+ (2 of 2 - PPSV23) 10/08/2020 10/08/2019 Influenza Vaccine (#1) 2024 10/08/2019 Breast Cancer Screening-Mammogram 01/08/2025 01/09/2024, 11/24/2022, 09/13/2021, Additional history exists Procedures Procedure Name Priority Date/Time Associated Diagnosis Comments SCREENING MAMMOGRAM BILATERAL W DOUGLAS Schedule Routine, Read Routine (OP Routine) 01/09/2024 7:23 AM 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 Screening mammogram, encounter for from Last 3 Months or Most Recently Relevant to Health Maintenance Results * Screening Mammogram Bilateral W Douglas (01/09/2024 7:23 AM 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) Anatomical Region Laterality Modality Breast Bilateral Mammography Narrative 01/09/2024 2:30 PM 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 Mammogram Technique: Bilateral Digital Breast Tomosynthesis, Bilateral C-view 2D Screening mammogram. Views obtained: bilateral craniocaudal and bilateral mediolateral oblique. Computer Aided Detection was performed. Mammogram Findings: The present examination has been compared to prior imaging studies performed at [facility] on 09/13/2021, 10/12/2021 and 11/24/2022. There are scattered areas of fibroglandular density. There is an oval mass measuring 23 millimeters in the anterior of the left breast at 12 o'clock. There be a few smaller nodular masses posterior to the dominant oval mass. There is no suspicious abnormality in the right breast. Impression: Mass in the left breast requires additional evaluation. Diagnostic mammogram and possible ultrasound of the left breast are recommended at this time. OVERALL FINAL ASSESSMENT: BI-RADS CATEGORY 0: Incomplete: Need additional imaging evaluation. Procedure Note Inez Vizcaino MD - 01/09/2024 Mammogram Technique: Bilateral Digital Breast Tomosynthesis, Bilateral C-view 2D Screening mammogram. Views obtained: bilateral craniocaudal and bilateral mediolateral oblique. Computer Aided Detection was performed. Mammogram Findings: The present examination has been compared to prior imaging studies performed at [facility] on 09/13/2021, 10/12/2021 and 11/24/2022. There are scattered areas of fibroglandular density. There is an oval mass measuring 23 millimeters in the anterior of theleft breast at 12 o'clock. There be a few smaller nodular masses posterior to the dominant ovalmass. There is no suspicious abnormality in the right breast. Impression: Mass in the left breast requires additional evaluation. Diagnostic mammogram and possible ultrasound of the left breast are recommended at this time. OVERALL FINAL ASSESSMENT: BI-RADS CATEGORY 0: Incomplete: Need additional imaging evaluation. us Self Screening Mammogram IMG MAMMO PROCEDURES Fi nal Result from Last 3 Months or Most Recently Relevant to Health Maintenance Insurance MEDICARE ADVANTAGE [facility] MEDICARE Address: [address] [address] MEDICARE ADVANTAGE MEDICARE ADVANTAGE Care Teams Processing Manager Relationship Specialty Start Date End Date Bibiana Carver MD PCP - General 10/22/17
--- OUTSIDE RECORDS SUMMARY | 2025-02-03 09:18 | XMS_ITS | Referral Summary ---
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 Gender Identity Not on file Sexual Orientation Not on file Last Filed Vital Signs Vital Sign Reading Time Taken Comments Blood Pressure - - Pulse - - Temperature - - Respiratory Rate - - Oxygen Saturation - - Inhaled Oxygen Concentration - - Weight 104.3 kg (230 lb) 12/23/2019 8:19 AM CANNED FOOD RECONDITIONING INSPECTOR Height 160 cm (5' 3 ) 12/23/2019 8:19 AM CANNED FOOD RECONDITIONING INSPECTOR Body Mass Index 40.74 12/23/2019 8:19 AM CANNED FOOD RECONDITIONING INSPECTOR Plan of Treatment Not on file Procedures Procedure Name Priority Date/Time Associated Diagnosis Comments SCREENING MAMMOGRAM BILATERAL W DOUGLAS Schedule Routine, Read Routine (OP Routine) 01/09/2024 7:23 AM CANNED FOOD RECONDITIONING INSPECTOR Screening mammogram, encounter for from Last 3 Months or Most Recently Relevant to Health Maintenance Results * Screening Mammogram Bilateral W Douglas (01/09/2024 7:23 AM CANNED FOOD RECONDITIONING INSPECTOR) Anatomical Region Laterality Modality Breast Bilateral Mammography Narrative 01/09/2024 2:30 PM CANNED FOOD RECONDITIONING INSPECTOR Mammogram Technique: Bilateral Digital Breast Tomosynthesis, Bilateral C-view 2D Screening mammogram. Views obtained: bilateral craniocaudal and bilateral mediolateral oblique. Computer Aided Detection was performed. Mammogram Findings: The present examination has been compared to prior imaging studies performed at [facility] on 09/13/2021, 10/12/2021 and 11/24/2022. There are [...] compared to prior imaging studies performed at [facility] on 09/13/2021, 10/12/2021 and 11/24/2022. There are [...] Most Recently Relevant to Health Maintenance Insurance [id number] MEDICARE ADVANTAGE MEDICARE ADVANTAGE MEDICARE ADVANTAGE Care Teams Medicaid Billing Specialist Relationship Specialty Start Date End Date Bibiana Carver MD PCP - General 10/22/17
--- OUTSIDE RECORDS SUMMARY | 2025-02-03 09:18 | XMS_ITS | Clinical Summary ---
Author Organization [facility] Address [address] [facility], [address] [phone] Phone Care Team Providers Care Palliative Senior Np Name Role Phone Bibiana Carver MD Primary Care Provider Medications polyethylene glycol (MIRALAX) Powder Mix the entire bottle with 64 oz of a clear liquid. Use as directed by the office for colonoscopy prep. 255 g 7 Active Social History Tobacco Use Types Packs/Day Years Used Date Smoking Tobacco: Never Assessed Comments No Sex and Gender Information Value Date Recorded Sex Assigned at Not on file Legal Sex Female 8:35 PM CDT Gender Identity Not on file Sexual Orientation Not on file Plan of Treatment Health Maintenance Due Date Last Done Comments DEXA Bone Density 1955 Hepatitis C Virus (HCV) Screening 1955 TdaP Immunization 1953 Cologuard 2003 Immunochemical Fecal Occult Blood 2003 Zoster Immunization (1 of 2) 2003 Mammogram 09/25/2020 09/25/2019 Pneumococcal Immunization (50+ years) (2 of 2 - PPSV23) 10/08/2020 10/08/2019 Colonoscopy 01/10/2023 01/10/2018 Colorectal Cancer Screening 01/10/2023 Influenza Immunization (#1) 2024 10/08/2019 SARS-COV-2 Immunization ( season) 2024 05/23/2022, 10/21/2021, 01/24/2021, Additional history exists Respiratory Syncytial Virus (RSV) Immunization (Adult) (1 - 1-dose 75+ series) 2028 01/10/2018 Pneumococcal Immunization Combined Discontinued 10/08/2019 Hepatitis B Immunization Aged Out No longer eligible based on patient's age to complete this topic Meningococcal Immunization (ACWY) Aged Out No longer eligible based on patient's age to complete this topic Rotavirus Immunization Aged Out No lo nger eligible based on patient's age to complete this topic Procedures Procedure Name Priority Date/Time Associated Diagnosis Comments RASHMI SCREENING BILATERAL DIGITAL W CAD W DOUGLAS Routine 09/25/2019 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 Encounter for screening mammogram for malignant neoplasm of breast HM COLONOSCOPY Routine 01/10/2018 from Last 3 Months or Most Recently Relevant to Health Maintenance Results * RASHMI SCREENING BILATERAL DIGITAL W CAD W DOUGLAS (09/25/2019 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) Anatomical Region Laterality Modality breast Bilateral Mammography 09/25/2019 8:12 AM BOX WORKER Narrative 09/26/2019 5:01 PM BOX WORKER - RASHMI SCREENING BILATERAL DIGITAL W CAD W DOUGLAS BILATERAL DIGITAL SCREENING MAMMOGRAM 3D/2D WITH CAD WITH MEDIOLATERAL OBLIQUE CRANIOCAUDAL: 09/25/2019 The study was acquired using digital technology and interpreted from soft copy. Current study was also evaluated with ICAD version 7.2. CLINICAL: Routine screening. Patient has no complaints. No personal history of cancer. Five maternal aunts and a maternal cousin had breast cancer. COMPARISONS: Comparison is made to exams dated: 07/19/2015, 06/19/2014 [facility], and 10/22/2017 [facility]. BREAST TISSUE:The tissue of both breasts is heterogeneously dense. This may lower the sensitivity of mammography. FINDINGS: There is an asymmetry within the outer left breast, middle depth, best seen on the CC view tomosynthesis images (frame 34). Benign-appearing punctate calcifications are present within both breasts. No suspicious masses, suspicious calcifications, or other suspicious findings are seen in the right breast. There has been no significant interval change involving the right breast. IMPRESSION: BI-RAD 0 ADDITIONAL IMAGING EVALUATION NEEDED 1. Lateral left breast asymmetry. Recommend left diagnostic mammogram with possible ultrasound for further evaluation. 2. No mammographic evidence of malignancy involving the right breast. Recommend routine annual screening mammography on the right. Electronically signed by: Miguel Madrigal M.D. mmd/:09/26/2019 15:07:22 Turbine Room Attendant: Yasmin Katz RT(R)(Lib[place]), [facility] letter sent: Additional Imaging Reading location: [facility] BI-RADS: 0 Additional Imaging Evaluation Needed Procedure Note Miguel Madrigal MD - 09/26/2019 - RASHMI SCREENING BILATERAL DIGITAL W CAD W DOUGLAS BILATERAL DIGITAL SCREENING MAMMOGRAM 3D/2D WITH CAD WITH MEDIOLATERAL OBLIQUE CRANIOCAUDAL: 09/25/2019 The study was acquired using digital technology and interpreted from soft copy. Current study was also evaluated with ICAD version 7.2. CLINICAL: Routine screening. Patient has no complaints. No personal history of cancer. Five maternal aunts and a maternal cousin had breast cancer. COMPARISONS: Comparison is made to exams dated: 07/19/2015, 06/19/2014 [facility], and 10/22/2017 [facility]. BREAST TISSUE:The tissue of both breasts is heterogeneously dense. This may lower the sensitivity of mammography. FINDINGS: There is an asymmetry within the outer left breast, middle depth, best seen on the CC view tomosynthesis images (frame 34). Benign-appearing punctate calcifications are present within both breasts. No suspicious masses, suspicious calcifications, or other suspicious findings are seen in the right breast. There has been no significant interval change involving the right breast. IMPRESSION: BI-RAD 0 ADDITIONAL IMAGING EVALUATION NEEDED 1. Lateral left breast asymmetry. Recommend left diagnostic mammogram with possible ultrasound for further evaluation. 2. No mammographic evidence of malignancy involving the right breast. Recommend routine annual screening mammography on the right. Electronically signed by: Miguel Madrigal M.D. mmd/:09/26/2019 15:07:22 Turbine Room Attendant: Yasmin GLASS(R)(M), [facility] letter sent: Additional Imaging Reading location: [facility] BI-RADS: 0 Additional Imaging Evaluation Needed us Alejandra M. Bautista SENIOR CYBER INTELLIGENCE ANALYST, BARROW WORKER HELPER IMG MAMMO ORDERABLES Fi nal Result * HM COLONOSCOPY (01/10/2018) Louis Valle DO PROCEDURE/MINOR SURGICAL ORDERA BLES Final Result from Last 3 Months or Most Recently Relevant to Health Maintenance Care Teams Palliative Senior Np Relationship Specialty Start Date End Date Bibiana Carver MD PCP - General Family Medicine 10/02/17
--- OUTSIDE RECORDS SUMMARY | 2025-02-03 09:18 | XMS_ITS | Clinical Summary ---
Author Organization [facility] Address [address] [place] [address] Phone Care Team Providers Care Sustainability Project Manager Name Role Phone Unavailable Unavailable Unavailable Reason for Visit and Chief Complaint gynecologic annual exam - The Chief Complaint is: WWE. No problems Problems Includes: Problems addressed during this encounter and other active Problems Current Visit Onset Date Resolved Date Provider Conditio n Status Colonic Diverticulosis 12/31/2023 LIZA MILLARD RN NP BC Active Last Documented On 1:10PM ; [facility] Reported Family History of Heart Disease 04/21/2015 LIZA MILLARD RN N P BC Active Last Documented On 04/21/2015 10:09AM ; [facility] Note: Unchanged - Mom, maternal sides History of Breast Fibrocystic Disease 04/14/2013 LIZA MILLARD RN N P BC Active Last Documented On 04/14/2013 3:01PM ; [facility] Note: Unchanged Past Visits Onset Date Resolved Date Provider Condition Status HYPERTENSION NOS 02/22/2010 ANGEL ROTHMAN M.D. Active Last Documented On 0 12:53PM ; [facility] Plan of Treatment - Weight loss diet - Last Documented On 12/31/2023 1:37PM ; [facility] - Clinical summary provided to patient - Last Documented On 12/31/2023 1:37PM ; [facility] PT TO CALL WITH ANY CHANGE IN STATUS ALL QUESTIONS ANSWERED WITH UNDERSTANDING VERBALIZED BY PT. - Last Documented On 12/31/2023 1:37PM ; [facility] Pending Tests Order Diagnosis Results Due Ordering P fer Radiology @ other - *MAMMOGRAPHY SCREENING MAMMOGRAM Encntr screen mammogram for malignant neoplasm of breast 01/14/[address] [facility] BC Last Documented On 4 2:37PM ; [facility] Instructions to patient Instructed to call if excess axel bleeding or abdominal/pelvic pain Last Documented On 4 1:12PM ; [facility] Instructions For Patient: Mo nthly Self Breast Exam Last Documented On 4 1:12PM ; [facility] Recommend diet and exercise at least 30 min three times per week Last Documented On 4 1:12PM ; [facility] Education and Decision Aids were provided during visit for: Patient Education: Daily herrera cium and vitamin D Last Documented On 4 1:12PM ; [facility] Assessments Includes: Assessments from this encounter Findings - [Z01.419 - Encounter for gynecological examination (general) (routine) without abnormal findings] NORMAL FEMALE EXAM - Last Documented On 12/31/2023 1:37PM ; [facility] - [Z12.4 - Encounter for screening for malignant neoplasm of cervix] Screen malignant neoplasm cervix - Last Documented On 12/31/2023 1:37PM ; [facility] Instructions Includes: Instructions from this encounter Instructions to patient Instructed to call if excess axel bleeding or abdominal/pelvic pain Last Documented On 4 1:12PM ; [facility] Instructions For Patient: Mo nthly Self Breast Exam Last Documented On 4 1:12PM ; [facility] Recommend diet and exercise at least 30 min three times per week Last Documented On 4 1:12PM ; [facility] Education and Decision Aids were provided during visit for: Patient Education: Daily herrera cium and vitamin D Last Documented On 4 1:12PM ; [facility] Medical Equipment - Implanted Devices Includes: Current Devices No Medical Equipment Recorded Medications Includes: Medications discussed during this encounter and other current Medications Discontinued / Stopped on this date on 04/21/2015 Verapamil HCl ER 120 MG Capsule, extended-release 24 h our Provider: Diagnosis: Last Documented On 12/31/2023 12:56PM By Cornelia Vigil ; [facility] Current Medications (continue as prescribed) D3 50 MCG (1999 UT) Oral Tablet 12/31/2023 Provider: Diagnosis: Last Documented On 12/31/2023 12:57PM By Cornelia Vigil ; [facility] QC Vitamin B12 1000 MCG Oral Tablet Extended Release 0 12/31/2023 Provider: Diagnosis: Last Documented On 12/31/2023 12:57PM By Cornelia Vigil ; [facility] PreserVision AREDS 2 Oral Capsule 12/31/2023 Provide r: Diagnosis: Last Documented On 12/31/2023 12:58PM By Cornelia Vigil ; [facility] Verapamil HCl ER 360 MG Oral Capsule Extended Release 24 Hour 11/29/2023 Provider: KACIE SINCLAIR MD Diagnosis: Last Documented On 12/31/2023 12:56PM By Cornelia Vigil ; [facility] Lisinopril 10 MG Oral Tablet 11/08/2023 Provider: KACIE SINCLAIR MD Diagnosis: Last Documented On 12/31/2023 12:56PM By Cornelia Vigil ; [facility] Medications Administered Includes: Administered Medications from this encounter No Administered Medications Recorded Vital Signs Includes: Vital Signs from this encounter Vital Name 12/31/2023 01:00P Blood Pressure Sitting L 132/84 BP Cuff Size Regular Temp-Temporal 97.7 Height (in) 63 Weight (lb) 244 Body Mass Index 43.2 Body Surface Area 2.1 Last Documented: On 12/31/2023 1:04PM ; [facility] Results Includes: Results discussed during this encounter No Results Recorded For Specified Dates History of Present Illness Includes: History of Present Illness from this encounter HPI - Allergy list reviewed - Medication list reviewed Social History Description Last Updated Activities 12/31/2023 Last Documented On 4 1:37PM ; [facility] Alcohol use: 2 drinks or less per day OC C 12/31/2023 Last Documented On 4 1:37PM ; [facility] Currently 12/31/2023 Last Documented On 4 1:37PM ; [facility] Education history 12/31/2023 Last Documented On 4 1:37PM ; [facility] In monogamous relationship 12/31/2023 Last Documented On 4 1:37PM ; [facility] Non-smoker 12/31/2023 Last Documented On 4 1:37PM ; [facility] Not a smoker 12/31/2023 Last Documented On 4 1:37PM ; [facility] Not exercising regularly 12/31/2023 Last Documented On 4 1:37PM ; [facility] Not using alcohol 12/31/2023 Last Documented On 4 1:37PM ; [facility] Not using drugs 12/31/2023 Last Documented On 4 1:37PM ; [facility] Personal history 12/31/2023 Last Documented On 4 1:37PM ; [facility] Sexually active 12/31/2023 Last Documented On 4 1:37PM ; [facility] Sexually active with 1 partners in the l ast year 12/31/2023 Last Documented On 4 1:37PM ; [facility] Smoking status : Never smoker 12/31/2023 Last Documented On 4 1:37PM ; [facility] Social history unchanged 12/31/2023 Last Documented On 4 1:37PM ; [facility] Not using alcohol 12/31/2023 Last Documented On 4 1:37PM ; [facility] Tobacco non-user 12/31/2023 Last Documented On 4 1:37PM ; [facility] Has not used injectable drugs 12/31/2023 Last Documented On 4 1:37PM ; [facility] Never a smoker 12/31/2023 Last Documented On 4 1:37PM ; [facility] No consumption of alcohol 12/31/2023 Last Documented On 4 1:37PM ; [facility] Not using drugs 12/31/2023 Last Documented On 4 1:37PM ; [facility] Procedures and Surgical History Includes: Procedures from this encounter Procedures Code Diagnosis Performing Provider Service L ocation Service Date education and instructions Last Documented On 4 1:12PM ; [facility] explanation of plan Last Documented On 4 1:12PM ; [facility] medical regimen review Last Documented On 4 1:12PM ; [facility] use of tobacco assessment performed 1000F Last Documented On 4 1:05PM ; [facility] Urged Exercise and Diet , exercise at le ast 30 min three times per week Last Documented On 4 1:12PM ; [facility] a mammogram was performed 11/2022 Last Documented On 4 1:05PM ; [facility] cervical Pap smear 2018 55696 Last Documented On 4 1:00PM ; [facility] history of cervical Pap smear 2018 89185 Last Documented On 4 1:05PM ; [facility] diaignostic fiberoptic colonoscopy Sep 2023 4537 8 Last Documented On 4 12:58PM ; [facility] screening mammogram was performed Nov 2022, Sche duled for Jan 2024 [id number] Last Documented On 4 12:58PM ; [facility] a colonoscopy was performed 09/2023 Last Documented On 4 1:05PM ; [facility] patient recently had a dexa scan 2018 Last Documented On 4 1:05PM ; [facility] FIT Test-Fecal Occult negative 25487 Last Documented On 4 1:12PM ; [facility] Surgical History Last Updated Surgical history unchanged 04/21/2015 Last Documented On 4 12:58PM ; [facility] Dilation + Curettage 03/15/2010 Last Documented On 4 12:58PM ; [facility] History of cholecystectomy 03/15/2010 Last Documented On 4 12:58PM ; [facility] Tonsillectomy 03/15/2010 Last Documented On 4 12:58PM ; [facility] Medical History Includes: Medical History addressed during this encounter Description Last Updated A mammogram was performed 12/31/2023 Last Documented On 4 1:37PM ; [facility] Surgical / procedural history C SECTION 1979 AND 1982 ~BREAST BX-2020--WNL 12/31/2023 Last Documented On 4 1:37PM ; [facility] History of diaignostic fiber optic colonoscopy 09/2023 [facility]--repeat 5 years 12/31/2023 Last Documented On 4 1:37PM ; [facility] A mammogram was performed 11/2022 024 Last Documented On 4 1:37PM ; [facility] History of a DXA of the lateral lumbar s pine was performed 201812/31/2023 Last Documented On 4 1:37PM ; [facility] History of Pap smear done 2018 Last Documented On 4 1:37PM ; [facility] History of screening mammogram was perfo rmed 11/202212/31/2023 Last Documented On 4 1:37PM ; [facility] Last mammogram date: 11/202212/31/2023 Last Documented On 4 1:37PM ; [facility] Last pap smear date 201812/31/2023 Last Documented On 4 1:37PM ; [facility] Patient recently had a dexa scan 2018 Last Documented On 4 1:37PM ; [facility] Patient recently had a dexa scan 017 SPINE WNL OSTEOPENIA OF HIPS 12/31/2023 Last Documented On 4 12:58PM ; [facility] # 1 Anesthesia: General 12/31/2023 Last Documented On 4 1:37PM ; [facility] # 1 Delivery date: June 24, 198012/31 Last Documented On 4 1:37PM ; [facility] # 1 Hours in labor ? 12/31/2023 Last Documented On 4 1:37PM ; [facility] # 1 type delivery: 12/31/2023 Last Documented On 4 1:37PM ; [facility] # 1 Weeks: Full term 12/31/2023 Last Documented On 4 1:37PM ; [facility] # 1 Weight 6lbs 9 ozs 12/31/2023 Last Documented On 4 1:37PM ; [facility] # 2 type delivery: 12/31/2023 Last Documented On 4 1:37PM ; [facility] # 2 Anesthesia: Spinal Block 12/31/2023 Last Documented On 4 1:37PM ; [facility] # 2 Delivery date: [birth year] 31, 1985 Last Documented On 4 1:37PM ; [facility] # 2 Hours in labor: 0 12/31/2023 Last Documented On 4 1:37PM ; [facility] # 2 Weeks: Full Term 12/31/2023 Last Documented On 4 1:37PM ; [facility] # 2 Weight: 7lbs 60zs 12/31/2023 Last Documented On 4 1:37PM ; [facility] An HIV test was not performed 12/31/2023 Last Documented On 4 1:37PM ; [facility] Elective (s) 0 12/31/2023 Last Documented On 4 1:37PM ; [facility] Exercise 12/31/2023 Last Documented On 4 1:37PM ; [facility] Gallbladder disease 12/31/2023 Last Documented On 4 1:37PM ; [facility] Kidney disease 12/31/2023 Last Documented On 4 1:37PM ; [facility] No previous STD 12/31/2023 Last Documented On 4 1:37PM ; [facility] No. of miscarriages: 0 12/31/2023 Last Documented On 4 1:37PM ; [facility] No. of Pregnancies: 2 12/31/2023 Last Documented On 4 1:37PM ; [facility] Please list all surgeries: T onsillectomy and adenoidectomy - 1958 ?Salmonella Infection - 1964 ?2 C-Sections - 1979 and 1982D&C - 1989 ?Cholecystectomy - 2000 ? 12/31/2023 Last Documented On 4 1:37PM ; [facility] Previous live (s) 2 12/31/2023 Last Documented On 4 1:37PM ; [facility] Previous premature delivery(s) 0 024 Last Documented On 4 1:37PM ; [facility] Recent immunization for flu Jun 2023 Last Documented On 4 1:37PM ; [facility] Reported Tdap/Td Vaccine Oct 20132023 Last Documented On 4 1:37PM ; [facility] Sex of Child # 1: Female 12/31/2023 Last Documented On 4 1:37PM ; [facility] Sex of Child # 2: Male 12/31/2023 Last Documented On 4 1:37PM ; [facility] History of complete colonoscopy 10/2019 Last Documented On 4 12:58PM ; [facility] PRIMARY CARE PROVIDER : DR Baird 09/12 Last Documented On 4 12:58PM ; [facility] A colonoscopy was performed [address] [place] [address] polyps--repeat 5 years 09/12/2018 Last Documented On 4 12:58PM ; [facility] Not sexually active 04/21/2015 Last Documented On 4 12:58PM ; [facility] No recent change in medical history 04/05 Last Documented On 4 12:58PM ; [facility] section 03/15/2010 Last Documented On 4 12:58PM ; [facility] 2 03/15/2010 Last Documented On 4 12:58PM ; [facility] History of benign essential hypertension 03/15/2010 Last Documented On 4 12:58PM ; [facility] History of breast fibrocystic disease Last Documented On 4 12:58PM ; [facility] LMP: 199803/15/2010 Last Documented On 4 12:58PM ; [facility] Para 2 03/15/2010 Last Documented On 4 12:58PM ; [facility] D&C ~LB 02/22/2010 Last Documented On 4 12:58PM ; [facility] 2 living children 02/22/2010 Last Documented On 4 12:58PM ; [facility] Hypertension 02/22/2010 Last Documented On 4 12:58PM ; [facility] Family History Includes: Family History addressed during this encounter Description Last Updated Family history of malignant female breast neoplasm Maternal Aunts, 1st cousin at 30 yearls old ~Sister-age 72 12/31/2023 Last Documented On 4 1:37PM ; [facility] Family history of (female) genital cance r 04/21/2015 Last Documented On 4 12:58PM ; [facility] Family history of carcinoma of the uteru s 04/21/2015 Last Documented On 4 12:58PM ; [facility] Family history of diabetes mellitus Mom, Maternal Grandma, Maternal aunts 04/21/2015 Last Documented On 4 12:58PM ; [facility] Family history of heart disease Mom, soumya adamsal sides 04/21/2015 Last Documented On 4 12:58PM ; [facility] Family history of hypertension Mom, malik bergeronl side 04/21/2015 Last Documented On 4 12:58PM ; [facility] Family history of uterine cancer Sister 04/21/2015 Last Documented On 4 12:58PM ; [facility] Family history unchanged 04/21/2015 Last Documented On 4 12:58PM ; [facility] No family history of hypercholesterolemi a 03/16/2011 Last Documented On 4 12:58PM ; [facility] No family history of malignant neoplasm of the large intestine 03/16/2011 Last Documented On 4 12:58PM ; [facility] No family history of malignant neoplasm of the ovary 03/16/2011 Last Documented On 4 12:58PM ; [facility] First child named MYKE 197903/15/2010 Last Documented On 4 12:58PM ; [facility] Second child named BELKIS 198203/15/2010 Last Documented On 4 12:58PM ; [facility] Spouse name: JAD 03/15/2010 Last Documented On 4 12:58PM ; [facility] Family history of Cancer 02/22/2010 Last Documented On 4 12:58PM ; [facility] Family history of Diabetes 02/22/2010 Last Documented On 4 12:58PM ; [facility] Family medical history of Breast problem s 02/22/2010 Last Documented On 4 12:58PM ; [facility] Family medical history of high blood pre ssure 02/22/2010 Last Documented On 4 12:58PM ; [facility] Review of Systems Includes: Review of Systems from this encounter Systemic: Not tiring easily. No fever, no chills, no [...] and no dysuria. No genital lesion, no vaginal dryness, and no nonmenstrual bleeding. No vaginal discharge. Endocrine: No polydipsia and no hot flashes. Musculoskeletal: No back pain, no muscle aches, [...] Location Date Check-In Time Check-Out Time Diagnosis WELL WOMAN - NEW PATIENT LIZA MILLARD RN [facility] 12/31/19 24 12:55PM 1:46PM Screen Malignant Neoplasm Cervix,Normal Female Exam Insurance Includes: Active Insurance Policies Plan Name Member ID Group # Subscriber Relationship Effect axel Dates 1 - [facility]/MEDICARE ADV/[employer] [id number] MARIA C HARPER Self Clinical Notes Includes: Clinical Notes from this encounter * Progress note Date Encounter Last Documented by 12/31/2023 WELL WOMAN - NEW PATIENT Last do cumented on 12/31/2023; 1:37 PM, LIZA MILLARD RN NP ; [facility] Active Problems & Conditions - K57.30 - Colonic Diverticulosis - Z80.3 - Family History of Breast Neoplasm Malignant - pt sister, hormone+, pt BRCA negative - Z83.3 - Family History of Diabetes Mellitus - mom - V17.49 - Family History of Hypertension Systemic - Mom, maternal side - Z80.49 - Family History of Uterine Cancer - Sister - 610.1 - History of Breast Fibrocystic Disease - 401.9 - HYPERTENSION NOS - V17.49 - Reported Family History of Heart Disease - Mom, maternal sides Chief Complaint The Chief Complaint is: WWE. No problems. Well Woman visit Reason For Visit Gynecologic annual exam. History of Present Illness - Allergy list reviewed - Medication list reviewed Current Medication - D3 50 MCG (2000 UT) Oral Tablet 0 days, 0 refills - Lisinopril 10 MG Oral Tablet 90 days, 0 refills - PreserVision AREDS 2 Oral Capsule 0 days, 0 refills - QC Vitamin B12 1000 MCG Oral Tablet Extended Release 0 days, 0 refills - Verapamil HCl ER 360 MG Oral Capsule Extended Release 24 Hour 90 days, 0 refills Past Medical/Surgical History Other: Primary Care Provider: DR Baird Reported: No recent change in medical history, Exercise, LMP: 1998, Last pap smear date 2018, Last mammogram date: 11/2022, and Please list all surgeries: Tonsillectomy and adenoidectomy - 1958 ?Salmonella Infection - 1964 ?2 C-Sections - 1979 and 1982D&C - 1989 ?Cholecystectomy - 2000 ?. Medical: Reported Tdap/Td Vaccine Oct 2013. Gallbladder disease and kidney disease. No previous STD. Hypertension. Surgical / Procedural: Surgical / procedural history C SECTION 1979 AND 1982 BREAST BX-2020--WNL. Tonsillectomy, Dilation + Curettage, and surgical history unchanged. Immunization History: Recent immunization for flu Jun 2023. Tests: A mammogram was performed 11/2022, a mammogram was performed, a colonoscopy was performed 2009 2016 [facility]--repeat 5 years, patient recently had a dexa scan 09/17/2017 SPINE WNL OSTEOPENIA OF HIPS, and patient recently had a dexa scan 2018. An HIV test was not performed. : 2, para 2 including premature delivery(s) 0, having live (s) 2, having 2 living children, aborta including elective (s) 0, history of the : section, No. of Pregnancies: 2, # 1 Delivery date: June 24, 1980, # 2 Delivery date: [birth year] 31, 1983, # 1 type delivery: , # 2 type delivery: , # 1 Anesthesia: General, # 2 Anesthesia: Spinal Block, # 1 Hours in labor ?, # 2 Hours in labor: 0, No. of miscarriages: 0, # 1 Weight 6lbs 9 ozs, # 2 Weight: 7lbs 60zs, # 1 Weeks: Full term, # 2 Weeks: Full Term, Sex of Child # 1: Female, and Sex of Child # 2: Male. Sexual: Not sexually active. Other: Diaignostic fiberoptic colonoscopy 09/2023 [place]--repeat 5 years. Screening mammogram was performed 11/2022. A DXA of the lateral lumbar spine was performed 2018 Diagnoses: Benign essential hypertension. Fibrocystic disease of breast D&C LB. Procedural: - Pap smear done 2018 - Complete colonoscopy 2016 Surgical: - Cholecystectomy Social History Social history unchanged. Personal: Personal history. Tobacco use: Never used tobacco never a smoker. Not a smoker. Non-smoker. Smoking status: Never smoker. Alcohol: No consumption of alcohol, not using alcohol, and not using alcohol. Alcohol use: 2 drinks or less per day OCC. Drug Use: Not using drugs, not using drugs, and has not used injectable drugs. Habits: Not exercising regularly. Education: Education history. Activities: Activities. Marital: Currently . Sexual: Sexually active. In monogamous relationship. Sexually active with 1 partners in the last year. Allergies - No Known Allergies Family History Spouse name: JAD First child named MYKE 1979 Second child named BELKIS 1982 Heart disease Mom, maternal sides Family history unchanged Family medical history of Breast problems Family medical history of high blood pressure Cancer Diabetes Systemic hypertension Mom, maternal side No diagnosis of pure hypercholesterolemia Diabetes mellitus Mom, Maternal Grandma, Maternal aunts No diagnosis of malignant neoplasm of large intestine Malignant female breast neoplasm Maternal Aunts, 1st cousin at 30 yearls old Sister-age 72 No diagnosis of malignant neoplasm of ovary Carcinoma of the uterus Uterine cancer Sister (female) genital cancer Review Of Systems Systemic: Not tiring easily. No fever, no chills, no [...] and no dysuria. No genital lesion, no vaginal dryness, and no nonmenstrual bleeding. No vaginal discharge. Endocrine: No polydipsia and no hot flashes. Musculoskeletal: No back pain, no muscle aches, and no localized joint pain. Neurological: No dizziness. Psychological: No anxiety, no depression, and a desire to continue living. Skin: No pruritus. No skin lesions and no rash. Physical Findings - Vitals taken 12/31/2023 01:00 pm BP-Sitting L 132/84 mmHg BP Cuff Size Regular Temp-Temporal 97.7 F Height 63 in Weight 244 lbs Body Mass Index 43.2 kg/m2 Body Surface Area 2.1 m2 Standard Measurements: - Weight. General Appearance: - Normal. - Well developed. - Well nourished. - In no acute distress. Neck: - Normal. Appearance: - Neck was not swollen. - Neck was symmetrical. Palpation: - No tenderness of the neck. Thyroid: - Showed no abnormalities. - Did not have a nodule. - Not tender. Eyes: General/bilateral: Pupils: - PERRL. Nose: Right Side Of Nose: - Normal. Left Side Of Nose: - Normal. Oral Cavity: - General condition was good. Gums: - Examination showed no abnormalities. Teeth: - Dental no abnormalities. Lymph Nodes: - No adenopathy. - Cervical lymph nodes: normal. - Supraclavicular lymph Nodes: normal. Breasts: General/bilateral: - Palpation of the breast revealed dense, thickened tissue. - Nipples showed no abnormalities. - No abnormal breast secretion was observed. - No dimpling was seen in the breast. - No breast asymmetry was observed. - No breast mass was found. - No tenderness of breast. Right Breast: - Normal. - Was normal to palpation. Left Breast: - Normal. - Was normal to palpation. Lungs: - Respiration rhythm and depth was normal. - Clear to auscultation. - No wheezing was heard. - No rhonchi were heard. Cardiovascular: - System: normal. Heart Rate And Rhythm: - Normal. - Heart rhythm regular. Heart Sounds: - Normal. - S1 normal. - S2 normal. - No gallop was heard. Murmurs: - No murmurs were heard. Edema: - Not present. Abdomen: - No organomegaly. Visual Inspection: - Abdomen was normal on visual inspection. Palpation: - Abdominal non-tender. Liver: - Not enlarged. Spleen: - Not enlarged. Urinary System: Bladder: - Normal. - Not tender. Urethra: - Normal. - Meatus showed no abnormalities. - No mass on the urethra. Genitalia: External: - Genitalia showed no abnormalities. Pelvic: - No ovarian mass. Vagina: - Mucosa was normal. - No vaginal discharge was observed. - No cystocele was observed. - No rectocele was observed. Cervix: - Normal. - No cervical discharge. - Showed no lesion. - Did not demonstrate pain elicited by motion. - No inflammation. - No stenosis. Uterus: - Positioned midline. - Mobile. - Uterine size is normal. - Not tender. Uterine Adnexae: - Normal. - Uterine adnexa was not tender. - No tubal mass was noted. Rectovaginal: - Tissue was normal. Perineum: - No lesions. - No rashes. Rectal: Anus Examination: - External hemorrhoids were observed. Musculoskeletal System: Fingers: General/bilateral: - No cyanosis of the fingers. - No acropachy of the fingers was observed. Neurological: - Oriented to time, place, and person. Psychiatric: - Mood was not anxious. Appearance: - Grooming was normal. Affect: - Not agitated. Skin: - General appearance was normal. - Texture was normal. - Turgor was normal. - No cyanosis. - Moisture was normal. - No skin lesions. - No perineal lesions. - No rash. Tests Laboratory-based Chemistry: Fecal Analysis: FIT Test-Fecal Occult negative. Laboratory Studies: Endoscopic / Fiberoptic Examinations: Diaignostic fiberoptic colonoscopy Sep 2023. Imaging: Mammogram: Screening mammogram was performed Nov 2022, Scheduled for Jan 2024. Pathology: Cytology: Cervical Pap smear 2018. Assessment - [Z01.419 - Encounter for gynecological examination (general) (routine) without abnormal findings] NORMAL FEMALE EXAM - [Z12.4 - Encounter for screening for malignant neoplasm of cervix] Screen malignant neoplasm cervix Previous Tests Past Medical: Tests: A mammogram was performed 11/2022, a colonoscopy was performed 09/2023, and patient recently had a dexa scan 2018. Pathology: Cytology: Cervical Pap smear 2019. Therapy - Urged Exercise and Diet, exercise at least 30 min three times per week. - Education and instructions. - Medical regimen review. - Explanation of plan. Counseling/Education - Instructions For Patient: Monthly Self Breast Exam - Instructed to call if excessive bleeding or abdominal/pelvic pain - Recommend diet and exercise at least 30 min three times per week - Patient Education: Daily calcium and vitamin D Plan StartCited - Asymptomatic menopausal state Radiology @ other: DEXA (to be scheduled) EndCited StartCited - Encntr screen mammogram for malignant neoplasm of breast Radiology @ other/*MAMMOGRAPHY: SCREENING MAMMOGRAM Instructions: Additional images/ultrasounds if indicated Please send to PCP EndCited StartCited - Other PHY ORDER/COMMENT 1 yr breast exam and release for 2022 colonoscopy records thanks EndCited - Weight loss diet - Clinical summary provided to patient PT TO CALL WITH ANY CHANGE IN STATUS ALL QUESTIONS ANSWERED WITH UNDERSTANDING VERBALIZED BY PT. Practice Management Use of tobacco assessment performed. Health Reminders - Assess Blood Pressure satisfied 12/31/2023. - Assess BMI satisfied 12/31/2023. - Assess Need for CT Lung Screen satisfied 12/31/2023. - Assess Tobacco Use satisfied 12/31/2023. - Colorectal Cancer Screening satisfied 12/31/2023. - Flu Shot satisfied 12/31/2023. - Mammogram satisfied 12/31/2023.
[2025-02-03 14:35] LABS: Alanine Aminotransferase 16 U/L (6-35); Albumin Level 4.1 g/dL (3.5-5.1); Alkaline Phosphatase 92 U/L (38-126); Anion Gap 5 mmol/L (4-12); Aspartate Amino Transferase 42 U/L (14-36); Bilirubin,Total 0.5 mg/dL (0.2-1.3); Blood Urea Nitrogen 21 mg/dL (7-17); Carbon Dioxide 26 mmol/L (22-30); Chloride 105 mmol/L (98-107); Estimated Glomerular Filt Rate 45; Glucose 95 mg/dL (65-110); Potassium 4.2 mmol/L (3.4-5.0); Sodium 136 mmol/L (137-145)
[2025-02-03 15:18] LABS: Vitamin D 25 Hydroxy 29.3 ng/mL
[2025-02-03 17:05] LABS: Hemoglobin A1C 5.6 % (<5.7)
== END 2025-02-03 08:56 | disposition home or self-care (01) ==
LOC: ANHGOSHLAB 08:55
PROVIDERS: PCP Family Medicine; Visit Provider Family Medicine
DX: I10 Essential (primary) hypertension (principal); R73.03 Prediabetes; E55.9 Vitamin D deficiency, unspecified
CPT/HCPCS: 36415; 80053; 82306; 83036

== ENCOUNTER 2025-08-18 10:19 | Outpatient (CLI) | payer MEDICARE, SELFPAY ==
--- OUTSIDE RECORDS SUMMARY | 2025-08-18 11:56 | XMS_ITS | Clinical Summary ---
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 Gender Identity Not on file Sexual Orientation Not on file Obstetrics History Last Filed Vital Signs Vital Sign Reading Time Taken Comments Blood Pressure - - Pulse - - Temperature - - Respiratory Rate - - Oxygen Saturation - - Inhaled Oxygen Concentration - - Weight 104.3 kg (230 lb) 12/23/2019 8:19 AM 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 Height 160 cm (5' 3) 12/23/2019 8:19 AM 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 Body Mass Index 40.74 12/23/2019 8:19 AM 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 Plan of Treatment Health Maintenance Due Date Last Done Comments Colon Cancer Screening-Colonoscopy 1955 Depression Screening 1953 Fall Risk Assessment 1955 Hepatitis C Screening 1955 Osteoporosis Screening-Bone Density Scan 1955 DTaP/Tdap/Td Vaccine (1 - Tdap) 1964 Hepatitis B Screening 1971 Zoster Vaccine (1 of 2) 2003 Well Visit 65+ 2018 Pneumococcal vaccine 65+ (2 of 2 - PCV20 or PCV21) 10/08/2020 10/08/2019 Influenza Vaccine (#1) 2025 10/08/2019 Breast Cancer Screening-Mammogram 02/20/2026 02/20/2025, 01/09/2024, 11/24/2022, Additional history exists Procedures Procedure Name Priority Date/Time Associated Diagnosis Comments SCREENING MAMMOGRAM BILATERAL W DOUGLAS Schedule Routine, Read Routine (OP Routine) 02/20/2025 7:45 AM CDT Screening mammogram, encounter for from Last 3 Months or Most Recently Relevant to Health Maintenance Results * Screening Mammogram Bilateral W Douglas (02/20/2025 7:45 AM CDT) Anatomical Region Laterality Modality Breast Bilateral Mammography Narrative 02/23/2025 12:57 PM CDT Mammogram Technique: Bilateral Digital Breast Tomosynthesis, Bilateral C-view 2D Screening mammogram. Views obtained: bilateral craniocaudal and bilateral mediolateral oblique. Computer Aided Detection was performed. Mammogram Findings: The present examination has been compared to prior imaging studies performed at [facility] on 11/24/2022, 01/09/2024 and 02/06/2024. There are scattered areas of fibroglandular density. There is no suspicious abnormality in either breast. Impression: There is no mammographic evidence of malignancy. Annual screening mammography is recommended. OVERALL FINAL ASSESSMENT: BI-RADS CATEGORY 1: Negative. Procedure Note Rigoberto Gardner MD - 02/23/2025 Mammogram Technique: Bilateral Digital Breast Tomosynthesis, Bilateral C-view 2D Screening mammogram. Views obtained: bilateral craniocaudal and bilateral mediolateral oblique. Computer Aided Detection was performed. Mammogram Findings: The present examination has been compared to prior imaging studies performed at [facility] on 11/24/2022, 01/09/2024 and 02/06/2024. There are scattered areas of fibroglandular density. There is no suspicious abnormality in either breast. Impression: There is no mammographic evidence of malignancy. Annual screening mammography is recommended. OVERALL FINAL ASSESSMENT: BI-RADS CATEGORY 1: Negative. us Self Screening Mammogram IMG MAMMO PROCEDURES Fi nal Result from Last 3 Months or Most Recently Relevant to Health Maintenance Insurance MEDICARE ADVANTAGE Care Teams Front Attendant Relationship Specialty Start Date End Date Bibiana Carver MD PCP - General 10/22/17
--- OUTSIDE RECORDS SUMMARY | 2025-08-18 11:56 | XMS_ITS | Clinical Summary ---
Author Organization [facility] Address [address] [place], [address] [id number] Phone Care Team Providers Care Body Maker Name Role Phone Bibiana Carver MD Primary [...] Health Maintenance Due Date Last Done Comments Hepatitis C Virus (HCV) Screening 1955 TdaP Immunization 1955 Cologuard 1998 Immunochemical Fecal Occult Blood 1998 Zoster Immunization (1 of 2) 2003 Pneumococcal Immunization (50+ years) (2 of 2 - PCV20 or PCV21) 10/08/2020 10/08/2019 Colonoscopy 01/10/2023 01/10/2018 Colorectal Cancer Screening 01/10/2023 Influenza Immunization (#1) 2025 10/08/2019 SARS-COV-2 Immunization ( season) 2025 05/23/2022, 10/21/2021, 01/24/2021, Additional history exists Respiratory Syncytial Virus (RSV) Immunization (Adult) (1 - 1-dose 75+ series) 2028 Mammogram Discontinued 09/25/2019 Pneumococcal Immunization Combined Discontinued 10/08/2019 Hepatitis B Immunization Aged Out No longer eligible based on patient's age to complete this topic Human Papillomavirus (HPV) Immunization Aged Out No longer eligible based [...] CAD W DOUGLAS Routine 09/25/2019 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, and 10/22/2017 [facility]. BREAST TISSUE:The tissue of both breasts is [...] signed by: Miguel Madrigal M.D. mmd/:09/26/2019 15:07:22 Lead Javascript Engineer: Yasmin Katz RT(R)(M), [facility] letter sent: Additional Imaging Reading location: [facility] BI-RADS: 0 Additional Imaging Evaluation Needed Procedure [...] is made to exams dated: 07/19/2015, 06/19/2014 [facility], and 10/22/2017 [facility]. BREAST TISSUE:The tissue of both breasts is [...] signed by: Miguel Madrigal M.D. mmd/:09/26/2019 15:07:22 Lead Javascript Engineer: Yasmin Katz RT(R)(M), [facility] letter sent: Additional Imaging Reading location: [facility] BI-RADS: 0 Additional Imaging Evaluation Needed Alejandra Baum APRN, SUPERVISOR GLUING IMG MAMMO ORDERABLES Fi nal Result * [facility] COLONOSCOPY (01/10/2018) Louis Valle DO PROCEDURE/MINOR SURGICAL ORDERA BLES Final Result from Last 3 Months or Most Recently Relevant to Health Maintenance Care Teams Body Maker Relationship Specialty Start Date End Date Bibiana Carver MD PCP - General Family Medicine 10/02/17
[2025-08-18 12:55] LABS: Hematocrit 41.8 % (37.0-47.0); Hemoglobin 13.0 g/dL (12.0-15.0); Immature Granulocyte Percent A 0.3 % (0-0.5); Lymphocytes Absolute Auto 2.59 K/mm3 (0.9-3.2); Mean Corpuscular HGB Conc 31.1 g/dl (32-36); Mean Corpuscular Hemoglobin 28.2 pg (26-34); Mean Corpuscular Volume 90.7 fl (80-100); Nucleated Red Blood Cells Absolute Auto 0.000 K/mm3 (0.0-0.012); Nucleated Red Blood Cells Perc 0.0 % (0.0-0.2); Platelet Count Result 210 k/mm3 (150-375); Red Blood Count 4.61 M/mm3 (4.2-5.4); White Blood Count 7.7 K/mm3 (4.5-10.0)
[2025-08-18 13:04] LABS: Alanine Aminotransferase 15 U/L (6-35); Albumin Level 4.2 g/dL (3.5-5.1); Alkaline Phosphatase 84 U/L (38-126); Anion Gap 9 mmol/L (4-12); Aspartate Amino Transferase 33 U/L (14-36); Bilirubin,Total 0.5 mg/dL (0.2-1.3); Blood Urea Nitrogen 21 mg/dL (7-17); Calcium 9.1 mg/dL (8.4-10.2); Carbon Dioxide 25 mmol/L (22-30); Chloride 106 mmol/L (98-107); Cholesterol 171 mg/dL (0-200); Estimated Glomerular Filt Rate 57; Glucose 92 mg/dL (65-110); HDL Direct 34 mg/dL; Potassium 4.3 mmol/L (3.4-5.0); Sodium 140 mmol/L (137-145); Total Protein 7.4 g/dL (6.3-8.2); Triglycerides 119 mg/dL (<150)
[2025-08-18 13:38] LABS: Thyroid Stimulating Hormone Reflex 1.970 uIU/mL (0.465-4.68)
[2025-08-18 14:00] LABS: Vitamin B12 846.0 pg/mL (239-931)
[2025-08-18 18:49] LABS: Hemoglobin A1C 5.5 % (<5.7)
== END 2025-08-18 10:20 | disposition home or self-care (01) ==
LOC: ANHGOSHLAB 10:20
PROVIDERS: PCP Family Medicine; Visit Provider Family Medicine
DX: E78.5 Hyperlipidemia, unspecified (principal); I10 Essential (primary) hypertension; E53.8 Deficiency of other specified B group vitamins; E55.9 Vitamin D deficiency, unspecified; R73.03 Prediabetes
CPT/HCPCS: 36415; 80053; 80061; 82306; 82607; 83036; 84443; 85025